=== PATIENT | male | born 1935 | race Caucasian/White ===

== ENCOUNTER 2017-04-14 05:41 | Inpatient (IN) | payer MEDICARE ==
--- OUTSIDE RECORDS SUMMARY | 2017-04-14 05:48 | XMS | Clinical Summary ---
:1935 Author Organization [facility] Address [address] [place] [address] Phone Care Team Providers Name Role Phone , Primary Care Provider Unavailable Allergies Not on File Current Medications Not on file Active Problems Not on file Social History Tobacco Use Types Packs/Day Years Used Date Never Assessed Sex Assigned at Date Recorded Not on file Last Filed Vital Signs Not on file Plan of Treatment Not on file Results Not on filefrom Last 3 Months
[2017-04-14] MEDS ORDERED: Fentanyl 100 MCG/2 ML VIAL ONE ×3 (06:46→14:31)
[2017-04-14] MEDS ORDERED: Midazolam HCl 2 mg/2 ml Vial ONE (06:46)
[2017-04-14 06:53] LABS: #Eosinphils 0.1 thou/uL (0.0-0.7); #Lymphocytes 1.6 thou/uL (1.20-3.40); #Neutrophils 6.2 thou/uL (1.40-6.50); %Basophils 0.4 % (0.0-1.0); %Eosinophils 1.5 % (0.0-10.0); %Lymphocytes 17.3 % (21.0-51.0); %Monocytes 11.2 % (0.0-10.0); Hematocrit 38.8 % (42.0-52.0); Mean Platelet Volume 6.7 fL (7.4-10.4); White Blood Cell (WBC) Count 8.9 thou/uL (4.8-10.8)
[2017-04-14 07:13] LABS: Anion Gap 13 mmol/L (10-20); BUN (Urea Nitrogen) 23 mg/dL (8.4-25.7); Calc. Creatinine Clearance 46 mL/min (70-130); Calcium 9.6 mg/dL (7.8-10.44); Carbon Dioxide 23 mmol/L (23-31); Chloride 105 mmol/L (98-107); Estimated GFR-MDRD 44
[2017-04-14] MEDS ORDERED: Iothalamate Meglumine 60% 50 ML VIAL FS ONE (07:17)
[2017-04-14] MEDS ORDERED: Bupivacaine HCl 0.5%/Epinephrine 1:200,000/PF 30 ml Vial ONE (07:17)
[2017-04-14] MEDS ORDERED: Propofol 200 MG/20 ML VIAL ONE (07:49)
[2017-04-14] MEDS ORDERED: Lidocaine 2% PF 10 ML AMP (For Epidural Use) ONE (07:49)
[2017-04-14] MEDS ORDERED: Glycopyrrolate 0.2 MG/ML 5 ML SYRINGE ONE (07:49)
[2017-04-14] MEDS ORDERED: ePHEDrine/0.9% NaCl/PF SYRINGE 50 mg/10 ml ONE (07:49)
[2017-04-14] MEDS ORDERED: Vecuronium 10 MG VIAL ONE (07:49)
[2017-04-14] MEDS ORDERED: Ropivacaine 0.2% HCl/PF 20 ML ONE (08:10)
[2017-04-14] MEDS ORDERED: SUGAMMADEX SODIUM 500 MG/5 ML VIAL ONE (13:19)
[2017-04-14] MEDS ORDERED: Promethazine HCl 25 MG/ML VIAL IM PRN ×2 (13:22→18:15)
[2017-04-14] MEDS ORDERED: Ondansetron HCl/PF 4 MG/2 ML Vial IVP PRN ×2 (13:22→18:15)
[2017-04-14] MEDS ORDERED: Promethazine HCl 25 MG/ML VIAL SLOW IVP PRN (13:22)
[2017-04-14] MEDS ORDERED: Fentanyl/Bupivacaine 250 ML EPIDURAL ONE (13:44)
[2017-04-14] MEDS ORDERED: Ondansetron HCl/PF 4 MG/2 ML Vial SLOW IVP PRN (14:03)
[2017-04-14] MEDS ORDERED: Acetaminophen 1,000 MG in Premix Bag 1 BAG IVPB SCH (15:00)
[2017-04-14] MEDS ORDERED: Eucerin (Mineral Oil/Petrolatum,White) 30 gm Jar TOP PRN (18:15)
[2017-04-14] MEDS ORDERED: Promethazine HCl 25 MG SUPP PR PRN (18:15)
[2017-04-14] MEDS ORDERED: Naloxone HCl 0.4 mg/ml Vial IV PRN (18:15)
[2017-04-14] MEDS ORDERED: diphenhydrAMINE HCl 25 MG CAP PO PRN (18:15)
[2017-04-14] MEDS ORDERED: traMADol HCl 50 MG TAB PO PRN ×2 (18:15)
[2017-04-14] MEDS ORDERED: Bupivacaine 0.25% 10 ML VIAL EPIDURAL PRN (18:15)
[2017-04-14] MEDS ORDERED: Fentanyl/Bupivacaine 250 ML in Premix Bag 1 BAG EPIDURAL SCH (18:15)
[2017-04-14] MEDS ORDERED: Naloxone HCl 0.4 mg/ml Vial IVP PRN (18:15)
[2017-04-14] MEDS ORDERED: diphenhydrAMINE HCl 50 MG/ML 1 ML VIAL IM PRN (18:15)
[2017-04-14] MEDS ORDERED: diphenhydrAMINE HCl 50 MG/ML 1 ML VIAL IVP PRN (18:15)
--- NOTE | 2017-04-14 18:49 | OP ---
PREOPERATIVE DIAGNOSIS: Request for bilateral ureteral stent placement for colovesical repair by Dr Lin Doshi. POSTOPERATIVE DIAGNOSIS: Request for bilateral ureteral stent placement for colovesical repair by Veronica Doshi. PROCEDURES PERFORMED: Cystoscopy, bilateral ureteral stent placement. INDICATION FOR PROCEDURE: This gentleman is 82 years old and undergoing a colovesical fistula repai r and Urology was requested for localizing stent placement. DESCRIPTION OF PROCEDURE: After signing informed consent, the patient was taken back to the procedu re room and underwent a general anesthetic, IV antibiotics, prepped and draped in the dorsal lithoto my position. After his catheter was removed, we entered his bladder with the rigid cystoscope. The surveillance cystoscopy did not see anything of concern. No fistula seen. The left ureteral orifi ce was intubated with a Glidewire and a 5-Kiswahili open-ended catheter was slid up into the kidney to 25 cm. This was repeated on the right side. The cystoscope was then removed leaving the stent in p lace. A 16 Kiswahili Thomson catheter was placed into the bladder, 10 mL placed in the balloon, stents w ere secured to the Thomson catheter, drainage packs were hooked up, the rest of the case was dictated by Dr. Doshi.
[2017-04-14] MEDS: Acetaminophen 1,000 MG in Premix Bag 1 BAG IVPB SCH (19:04)
[2017-04-14] MEDS: D5 1/2 NS w/20 mEq KCL 1,000 ML IV SCH (19:11)
[2017-04-14] MEDS: Brimonidine Tartrate 0.2% Ophth Soln 5 ml Bottle R EYE SCH (20:41)
[2017-04-14] MEDS: Timolol 0.5% Ophth Soln 5 ml Bottle R EYE SCH (20:42)
[2017-04-14] MEDS ORDERED: Sodium Chloride 0.9% 1,000 ML IV SCH ×2 (20:45→23:15)
[2017-04-14] MEDS ORDERED: Finasteride 5 MG TAB PO SCH (21:00)
[2017-04-14] MEDS ORDERED: Tamsulosin HCl 0.4 MG CAP PO SCH (21:00)
[2017-04-14 23:48] LABS: #Lymphocytes 1.1 thou/uL (1.20-3.40); #Monocytes 0.5 thou/uL (0.11-0.59); #Neutrophils 5.2 thou/uL (1.40-6.50); %Basophils 0.3 % (0.0-1.0); %Eosinophils 0.1 % (0.0-10.0); %Lymphocytes 16.4 % (21.0-51.0); %Monocytes 6.9 % (0.0-10.0); Hematocrit 34.6 % (42.0-52.0); Mean Platelet Volume 7.3 fL (7.4-10.4); Red Blood Cell (RBC) Count 3.81 mill/uL (4.70-6.10); White Blood Cell (WBC) Count 6.8 thou/uL (4.8-10.8)
[2017-04-14 23:49] LABS: Prothrombin Time 17.3 SEC (12.0-14.7)
[2017-04-14 23:50] LABS: PTT 37.1 SEC (22.9-36.1)
[2017-04-14 23:59] LABS: Anion Gap 14 mmol/L (10-20); BUN (Urea Nitrogen) 26 mg/dL (8.4-25.7); Calc. Creatinine Clearance 32 mL/min (70-130); Calcium 8.2 mg/dL (7.8-10.44); Carbon Dioxide 21 mmol/L (23-31); Chloride 107 mmol/L (98-107); Estimated GFR-MDRD 30
[2017-04-15 00:05] LABS: Troponin I 0.014 ng/mL (< 0.028)
--- NOTE | 2017-04-15 00:35 | PDOC.OP ---
Operative Note - Operative Note Operative Note: PROCEDURE: Laparoscopic hand-assisted left colectomy with repair of colovesical fistula DATE OF PROCEDURE: 04/14/2017 SURGEON: Rochelle Doshi M.D. ASST.: Gretchen CULVER PREOPERATIVE DIAGNOSES: Colovesical fistula POSTOPERATIVE DIAGNOSIS: Colovesical fistula HISTORY: Mr. 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 He has been treated with diversion and antibiotics and is here today for left colon resection and repair of colovesical fistula. PROCEDURE IN DETAIL: After informed consent was obtained and appropriate preoperative antibiotics administered the patient was taken to the operating room where he was placed in supine position and general endotracheal anesthesia was administered. Bilateral ureteral stents were placed by Dr. Toney of urology. The patient was then placed in lithotomy position and prepped and draped in the standard sterile fashion including a perineal prep. A sterile ileostomy appliance was placed over the ileostomy site. A 6 cm periumbilical incision was made and dissection carried down to the fascia which was incised in the midline. The peritoneum was entered and the incision extended along the length of the skin incision. No significant adhesions were encountered. A GelPort was placed in cardiac index a gas insufflated to an intra-abdominal pressure of 15 which the patient tolerated well. Dissecting trochars were placed in the upper midline and right and left lower quadrants under direct vision of the laparoscope and attention turned to the colovesical fistula. The colon was still very thickened and abnormal but a plane was able to be developed between the colon and the bladder. A fibrous connection between the 2 was encountered and divided using LigaSure. During this process the colon was entered but there was no visible defect in the bladder. The sigmoid colon was mobilized medially and the ureter with the stent present within it was clearly identified in the retroperitoneum distant from the colon. This was carefully avoided during the remainder of the case. The right ureter with stent was also clearly palpable but was distant from the area of dissection. Methylene blue saline was instilled into the bladder until it was well distended and no leak seen. A Lembert suture was placed at the site where the fibrous connection between the colon and bladder had been present as a precaution. The left colon was mobilized medially. The splenic flexure had previously been taken down. The middle colic was identified and preserved and the transverse colon appeared lax enough to reach down to the rectum. The normal rectum inferior to the inflamed thickened sigmoid colon was identified. The mesorectum was divided using LigaSure and an Endo CONNIE stapler placed across the upper rectum. The stapler was fired and the rectum divided. The mesocolon was then sequentially divided close to the wall of the colon using LigaSure, again verifying that the ureter was distant from the area of dissection. There was some bleeding from the mesial colon which was easily controlled with LigaSure. Dissection was carried up beyond the splenic flexure and the transverse colon brought down to the rectal stump and found to reach without tension. The GelPort was then removed leaving the wound protector in place and the colon was externalized and sterile drapes were placed circumferentially to prevent contamination. A colotomy was placed in the distal transverse colon and the transverse colon evaluated with sizers. This easily accepted up to a 31 mm sizer. Rectal sizers were then advanced to the end of the rectal pouch. This did require some dilation of the anus but the sizers passed to the end of the pouch without difficulty. The appropriate size EEA stapler was selected and the anvil placed through the antimesenteric edge of the transverse colon several centimeters proximal to the colotomy. A pursestring suture was placed around the stalk and the colon distal to the anvil was divided using another fire of the EEA stapler. The corners of the staple line were inverted with Lembert sutures. The EEA stapler was then advanced transanally to the end of the rectal pouch and the spike advanced through the rectal pouch and mated to the anvil of the transverse colon. The EEA stapler was closed taking care to maintain correct orientation of the colon. The stapler was then fired and removed and 2 complete full-thickness donuts were confirmed. The transverse colon was then clamped and saline instilled into the pelvis. The anastomosis was distended with gas and no bubbling was seen. The anastomosis was confirmed to be without tension, and a single reinforcing Lembert suture placed across the anastomosis to reinforce this. The mesocolon was then carefully examined and hemostasis verified. The abdomen was irrigated and irrigation fluid removed. Hemostasis was again verified. The 12 mm port site in the right lower quadrant was then removed and the fascia reapproximated with a 0 Vicryl suture on a GraNee needle with excellent technical result. The other dissecting trochars removed and hemostasis verified. The omentum was drawn down over the intestine and Seprafilm placed anterior to this. The fascia was closed under direct vision using a running 0 PDS suture with excellent technical result. All incisions were irrigated and the skin incisions were closed with 4-0 Monocryl subcuticular sutures. Dermabond dressings were placed and the patient was taken to the recovery room in good condition. Estimated blood loss was 100 mL's. There were no complications. Specimen is left colon.
[2017-04-15] MEDS: Sodium Chloride 0.9% 1,000 ML IV SCH ×5 (01:24→21:43)
[2017-04-15] MEDS: Acetaminophen 1,000 MG in Premix Bag 1 BAG IVPB SCH ×4 (01:25→17:33)
[2017-04-15] MEDS: Ketorolac Tromethamine 30 MG/ML VIAL IVP SCH ×2 (01:25→06:29)
[2017-04-15] MEDS ORDERED: Sodium Chloride 0.9% 1,000 ML IV SCH ×2 (01:45→11:45)
--- NOTE | 2017-04-15 01:48 | PDOC.EVN ---
Event Note - Event Note Event Note: Called around 8:30 for decreased blood pressure. The nurse states that his blood pressure had initially been in the 90s systolic had dropped into the 80s. His heart rate was also in the 80s and he was completely asymptomatic without lightheadedness shortness of breath or chest pain. He denied any pain in his abdomen and had not had any rectal bleeding since earlier down in the PACU. His urine output was marginal at 75 mL's over 2 hours site 8 him a fluid bolus of 1 L normal saline. The nurse called back about 2 hours later that his blood pressure had transiently come up with the fluids but was now back down, and his urine output was minimal. I asked her to give him another fluid bolus, get an EKG, send off labs and transfer him to the CCU for closer monitoring. In addition, he has fentanyl and local anesthetic running through his epidural and I asked her to call the pain management service to see about turning is down a bit. On reviewing his charts he does not have any documented low blood pressures in the CCU but his urine output was low. Direct to see him shortly after his arrival in the CCU. No acute changes on EKG and he was completely asymptomatic although his blood pressure remained 80 systolic. He was just beginning his second fluid bolus at that time and his abdomen was soft and nondistended and nontender. 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 His hematocrit is down a little from preop and his BUN and creatinine have gone up consistent with dehydration. Troponin is normal. He had only moderate bleeding during his operation and hemostasis was pristine at the end of the case, but postoperative bleeding is definitely a concern. He is receiving additional fluids and serial H&H and we will continue to monitor his vital signs and urine output closely.
[2017-04-15 02:22] LABS: Troponin I Less than 0.010 ng/mL (< 0.028)
[2017-04-15 05:10] LABS: Anion Gap 13 mmol/L (10-20); BUN (Urea Nitrogen) 27 mg/dL (8.4-25.7); Calc. Creatinine Clearance 36 mL/min (70-130); Calcium 7.7 mg/dL (7.8-10.44); Carbon Dioxide 20 mmol/L (23-31); Chloride 109 mmol/L (98-107); Estimated GFR-MDRD 35
[2017-04-15 05:47] LABS: Band 34 % (5-11); Hematocrit 33.2 % (42.0-52.0); Mean Platelet Volume 7.2 fL (7.4-10.4); Metamyelocyte 16 % (0-0); Neutrophil 31 % (42-75); Reactive Lymphocytes 1 % (0-10); Red Blood Cell (RBC) Count 3.62 mill/uL (4.70-6.10); White Blood Cell (WBC) Count 8.6 thou/uL (4.8-10.8)
--- NOTE | 2017-04-15 06:22 | EKG ---
Test Reason : PREOP Blood Pressure : / mmHG Vent. Rate : 060 BPM Atrial Rate : 060 BPM P-R Int : 148 ms QRS Dur : 112 ms QT Int : 428 ms P-R-T Axes : -04 -55 025 degrees QTc Int : 428 ms Normal sinus rhythm Left axis deviation Pulmonary disease pattern (persistent S waves V5 and V6. Abnormal ECG When compared with ECG of 05-JAN-2017 16:56, QT has shortened Confirmed by ELYSIA SALES ([id number]) on 04/15/2017 6:22:10 AM Referred By: TERESO Confirmed By:EYLSIA SALES
[2017-04-15 07:29] LABS: Hematocrit 34.2 % (42.0-52.0)
--- NOTE | 2017-04-15 07:39 | CT ---
PRELIMINARY REPORT/[facility]/EMERGENCY AFTER HOURS PROCEDURE: EXAM: CT Abdomen and Pelvis Without Intravenous Contrast CLINICAL HISTORY: 82 years old, male; abdominal pain: R/O bleed; Prior surgery; Post-operative (0-2 days); type: Ileos raimundo TECHNIQUE: Axial computed tomography images of the abdomen and pelvis without intravenous contrast. Coronal reformatted images were created and reviewed. COMPARISON: No relevant prior studies available. FINDINGS: Lower thorax: Minimal left pleural fluid. Areas of consolidation and/or atelectasis within each lowe r lobe. Coronary artery and aortic valve annulus calcification. ABDOMEN: Liver: Unremarkable. Gallbladder and bile ducts: Unremarkable. No calcified stones. No ductal dilation. Pancreas: Unremarkable. No ductal dilation. Spleen: Unremarkable. No splenomegaly. Adrenals: Unremarkable. No mass. Kidneys and ureters: Unremarkable. No obstructing stones. No hydronephrosis. Stomach and bowel: Scattered collections of postsurgical free air in this patient with recent ileost vaishnavi placement. Right lower quadrant ileostomy. Nondistended rectosigmoid colon - wall thickness celestina ot be accurately assessed in this area. No generalized ileus or obstruction. Appendix: Normal appendix. PELVIS: Bladder: Air within anterior portion of the bladder lumen following jamison catheterization. Bladder i nfection cannot be totally excluded. No stones. Reproductive: Enlarged prostate gland measuring 5 cm transversely. ABDOMEN and PELVIS: Intraperitoneal space: Small amount of free fluid in the abdomen pelvis. No evidence to suggest intr a-abdominal or pelvic hemorrhage. Bones/joints: Spinal degenerative changes. No acute fracture. No dislocation. Soft tissues: Unremarkable. Vasculature: Unremarkable. No abdominal aortic aneurysm. Lymph nodes: Unremarkable. No enlarged lymph nodes. IMPRESSION: 1. Scattered collections of postsurgical free air in this patient with recent ileostomy placement. 2. Small amount of free fluid in the abdomen pelvis. 3. No evidence to suggest intra-abdominal or pelvic hemorrhage. 4. Enlarged prostate gland measuring 5 cm transversely. 5. Air within anterior portion of the bladder lumen following jamison catheterization. Bladder infecti on cannot be totally excluded. 6. Minimal left pleural fluid. Areas of consolidation and/or atelectasis within each lower lobe. Thank you for allowing us to participate in the care of your patient. Dictated and Authenticated by: Nghia Clayton MD 04/15/2017 3:22 AM Central Time ([place] \T\ [place]) FINAL REPORT CT ABDOMEN AND PELVIS WITHOUT CONTRAST: I agree with the preliminary report by Dr. Nghia Clayton of [facility]. POS: NATE
[2017-04-15] MEDS ORDERED: Hydrochlorothiazide 25 MG TAB PO SCH (09:00)
[2017-04-15] MEDS ORDERED: Metoprolol Tartrate 25 MG TAB PO SCH (09:00)
[2017-04-15] MEDS ORDERED: Latanoprost 0.005% Ophth Soln 2.5 ml Bottle EA EYE SCH (09:00)
[2017-04-15] MEDS: Timolol 0.5% Ophth Soln 5 ml Bottle R EYE SCH ×2 (09:13→21:40)
--- NOTE | 2017-04-15 09:20 | CON ---
DATE OF CONSULTATION: 04/15/2017 CONSULTING PHYSICIAN: Dr. Doshi REASON FOR CONSULTATION: ICU protocol. HISTORY OF PRESENT ILLNESS: The patient is an 82-year-old male, who was hospitalized yesterday for evaluation and treatment of a colonic vesicular fistula. He underwent laparotomy with a diverting i leostomy. Last night, he was transferred to the ICU, because of hypotension. He has responded some what to fluids and has not required initiation of vasopressor therapy. At the current time, he is c omfortable and has no complaints. PAST MEDICAL HISTORY: 1. Hyperlipidemia. 2. Prostate cancer. 3. Herpes zoster. 4. Skin cancer. PAST SURGICAL HISTORY: Diverting ileostomy; shoulder and foot surgery and back surgery. SOCIAL HISTORY: Nonsmoker, does not consume alcohol, does not use illicit drugs. MEDICATIONS PRIOR TO ADMISSION: Simvastatin, metoprolol, finasteride, amlodipine, aspirin, vitamin C, glucosamine, Centrum, amiloride/hydrochlorothiazide, meloxicam. FAMILY MEDICAL HISTORY: Remarkable for congestive heart failure and stroke. ALLERGIES: CEPHALOSPORINS. REVIEW OF SYSTEMS: Twelve-point review of systems is otherwise negative. PHYSICAL EXAMINATION: VITAL SIGNS: Temperature 98.1, pulse 85, blood pressure 89/47, O2 sat 91%-94%. Total intake since ICU admission 5236 mL and output 229, weight 180 pounds. GENERAL: He is awake and alert. He is in no acute distress. HEENT EXAM: Pupils react. Sclerae are anicteric. Oropharynx clear. NECK: Without adenopathy or JVD. LUNGS: Clear without wheezing or rhonchi. CARDIOVASCULAR: S1, S2 regular, without murmur, rub, or gallop. ABDOMEN: He has a right-sided ileostomy. He has several small surgical wounds, which are healing w ell. EXTREMITIES: Without clubbing, cyanosis, or edema. LABORATORY DATA: Sodium 138, potassium 4.2, chloride 109, CO2 of 20, BUN 27, creatinine 1.8, glucos e 89. Troponin less than 0.01, calcium 7.7. White blood cell count 8.6, hemoglobin 11.4, hematocri t 34.2, platelet count 120. Cortisol level is pending. CT of the abdomen had no significant findin gs. ASSESSMENT: Postoperative hypotension -- seems to be somewhat mediated by volume status. Need to r ule out adrenal insufficiency. Need to rule out the effect of the epidural on his blood pressure. RECOMMENDATIONS: 1. Check cortisol level. 2. Hold antihypertensives for the current time. 3. Hold amiloride and hydrochlorothiazide. 4. Continue volume resuscitation. 5. Consider stopping the epidural.
[2017-04-15] MEDS: Brimonidine Tartrate 0.2% Ophth Soln 5 ml Bottle R EYE SCH ×2 (09:30→21:38)
[2017-04-15] MEDS: Hydrocortisone Sod Succ/PF 100 mg/2 ml Vial IVP SCH ×3 (11:55→23:43)
[2017-04-15 12:04] LABS: Hematocrit 34.6 % (42.0-52.0); Mean Platelet Volume 7.3 fL (7.4-10.4); White Blood Cell (WBC) Count 7.7 thou/uL (4.8-10.8)
[2017-04-15] MEDS ORDERED: DOPamine 400 MG/D5W 250 ML 250 ML ONE (12:08)
[2017-04-15 12:27] LABS: Anion Gap 11 mmol/L (10-20); BUN (Urea Nitrogen) 29 mg/dL (8.4-25.7); Calc. Creatinine Clearance 37 mL/min (70-130); Calcium 7.9 mg/dL (7.8-10.44); Carbon Dioxide 20 mmol/L (23-31); Chloride 111 mmol/L (98-107); Estimated GFR-MDRD 35
[2017-04-15 12:32] LABS: Troponin I Less than 0.010 ng/mL (< 0.028)
[2017-04-15 12:46] LABS: Band 35 % (5-11); Metamyelocyte 1 % (0-0); Neutrophil 49 % (42-75); Reactive Lymphocytes 1 % (0-10); Vacuoles SLIGHT
[2017-04-15] MEDS ORDERED: DOPamine 400 MG/D5W 250 ML 250 ML IVPB SCH (15:15)
[2017-04-15 18:12] LABS: Hematocrit 39.6 % (42.0-52.0)
--- NOTE | 2017-04-15 21:16 | CON ---
DATE OF CONSULTATION: 04/15/2017 REASON FOR CONSULTATION: Hypotension. HISTORY OF PRESENT ILLNESS: Mr. Butt is a pleasant 82-year-old gentleman, a patient of Dr. Kinsey. The patient underwent colon surgery yesterday, did well, no problems, but was hypotensi ve today, received boluses of intravenous fluid. There was transient increased blood pressure, but the blood pressure would then come down again. Ultimately, he had to be brought here to the emergen cy room. He has been started on dopamine and the blood pressures improved. At one point the blood pressure was even in the 60s systolic. The patient is resting comfortably now. PAST MEDICAL HISTORY: 1. History of spinal stenosis surgery. 2. Colon surgery as outlined above. 3. Hypertension. MEDICATIONS PRIOR TO ADMISSION: 1. Amlodipine 5 mg a day which he did take yesterday morning. 2. Metoprolol long-acting 25 mg which he did take yesterday morning. 3. Flomax (tamsulosin) in the evening, which he did receive yesterday at 08:39 p.m. REVIEW OF SYSTEMS: Constitutional: No significant weight gain or loss. Vision: No changes. Hear ing: No changes. Pulmonary: No cough or wheezing. Gastrointestinal: No nausea, vomiting, diarrh ea. Skin: No rashes. Neurologic: No unilateral weakness or numbness. Psychiatric: No unusual depression or anxiety. Hematologic: No unusual bruising. Genitourinary: No burning with urination. ALLERGIES: To CEFEPIME and CEPHALOSPORINS. PHYSICAL EXAMINATION: GENERAL: This is a pleasant elderly gentleman in no distress. VITAL SIGNS: Blood pressure is 110/60, pulse 90. HEENT: Eyes, sclerae nonicteric. Mouth, mucous membranes moist. NECK: Supple, no lymphadenopathy. LUNGS: Clear, no wheezing, rales or rhonchi. CARDIAC: Normal S1, normal S2. There is no murmur, rub or gallop. ABDOMEN: Soft, nontender, no hepatosplenomegaly. EXTREMITIES: Warm, dry, no clubbing or cyanosis. There is no edema. Peripheral pulses are intact in the feet. LABORATORY AND X-RAY FINDINGS: EKG, normal EKG. Echocardiogram showed normal left ventricular func tion with mild right ventricular dilatation, mildly elevated pulmonary artery pressures, creatinine is 1.85, BNP 519, troponin was negative. ASSESSMENT: 1. Postoperative hypotension, does not appear that he is having any bleeding as outlined by Dr. Andi goldstein's notes, may be multifactorial including medications, could still be somewhat volume depleted. The left ventricular function appears normal. Plan is to continue with intravenous fluid. 2. Increased BNP does indicate some element of diastolic dysfunction. We will need to be judicious about the fluids, but for now we will continue 200 mL an hour. 3. Stop Flomax. 4. Stop amlodipine. 5. Stop metoprolol. Dr. Kinsey will resume the patient's care tomorrow.
[2017-04-15] MEDS: D5 1/2 NS w/20 mEq KCL 1,000 ML IV SCH (21:35)
[2017-04-15] MEDS: Latanoprost 0.005% Ophth Soln 2.5 ml Bottle EA EYE SCH (21:42)
[2017-04-15] MEDS: HYDROcodone/Acetaminophen 5/325 mg Tablet PO PRN (22:30)
[2017-04-16 00:02] LABS: Hematocrit 38.7 % (42.0-52.0)
[2017-04-16 05:19] LABS: Band 35 % (5-11); Mean Platelet Volume 7.3 fL (7.4-10.4); Neutrophil 60 % (42-75); Red Blood Cell (RBC) Count 4.19 mill/uL (4.70-6.10); White Blood Cell (WBC) Count 11.3 thou/uL (4.8-10.8)
[2017-04-16] MEDS: Hydrocortisone Sod Succ/PF 100 mg/2 ml Vial IVP SCH ×3 (05:30→17:34)
[2017-04-16] MEDS: Sodium Chloride 0.9% 1,000 ML IV SCH ×3 (05:44→18:15)
--- NOTE | 2017-04-16 06:27 | EKG ---
Test Reason : STAT Blood Pressure : / mmHG Vent. Rate : 082 BPM Atrial Rate : 082 BPM P-R Int : 154 ms QRS Dur : 104 ms QT Int : 358 ms P-R-T Axes : 007 -61 028 degrees QTc Int : 418 ms Normal sinus rhythm Left axis deviation Pulmonary disease pattern Inferior infarct , age undetermined Abnormal ECG When compared with ECG of 14-APR-2017 06:54, Nonspecific T wave abnormality now evident in Anterolateral leads Confirmed by ELYSIA SALES ([id number]) on 04/16/2017 6:27:11 AM Referred By: TERESO Confirmed By:ELYSIA SALES
--- NOTE | 2017-04-16 08:13 | PRG ---
DATE OF SERVICE: 04/16/2017 Mr. Butt is doing much better today. He feels fine. He is not nauseated. He is a little hungry and would like something more than clear liquids. He has a little bit of pain at his incisio n when he tries to sit up, but is comfortable at rest. He has not been out of bed yet due to his bl ood pressure issues. His blood pressure has been much better. The nurse turned down the dopamine s everal hours ago and he is still maintaining in the 120s systolic. His urine output has also been g ood and has increased from about 30 mL an hour to 80 mL and hour. Labs are stable, his H\T\H has ac tually gone up a little bit from 11 and 35 yesterday morning to 12 and 38 today, has overall been st able. He does have a slight elevation in his white count and a bandemia, but has not been febrile a nd this may be a result of Solu-Cortef he has received. His abdomen is soft and nontender except ju st around the incisions as anticipated. Bowel sounds are still slightly diminished, but he had 200 in ileostomy output yesterday. Incisions are clean, dry, and intact. Thomson catheter is in place an d urine is much clearer in color. He was seen yesterday by Dr. Esquivel and by Dr. Walls. Dr. Servin cer start him on some Solu-Cortef since his cortisol level was less than 20 inappropriately in the s etting of postoperative stress and hypotension. Dr. Walls started him on some low dose dopamine af ter fluid resuscitation. We are currently in the process of weaning that down. ASSESSMENT: Doing much better. Hypertension, resolving, although etiology is unclear, possibly an element of adrenal insufficiency, possibly related to preoperative chronic home medications and volu me depletion following this surgery. We have come down on both his fluids and his dopamine and hope to get the dopamine off today. Once that is accomplished, we can increase his activities and get h im up and moving. Since his H\T\H have been entirely stable and his CT was negative for bleeding, I have started Lovenox at prophylactic dosing appropriate for postoperative management. Once he is t olerating his diet with normal ileostomy function and medically stable he should be able to be disch arged. I will see him back in my clinic in a few weeks and schedule imaging of the colonic anastomo sis for planned ileostomy takedown, although of course he will require cardiology clearance before w gautam proceed with that. At this point he does not appear to have had an acute cardiac event. His trop onins have all been negative and his echocardiogram showed a normal ejection fraction with just some diastolic dysfunction.
--- NOTE | 2017-04-16 08:15 | PRG ---
DATE OF SERVICE: 04/16/2017 He is feeling better this morning. He had no acute complaints except for soreness near surgical sit e. PHYSICAL EXAMINATION: VITAL SIGNS: Temperature is 98.0, pulse 83, blood pressure 130/68. He is currently on a dopamine d rip at 3 mcg per minute. HEENT: Unremarkable. NECK: Without adenopathy or JVD. CHEST: Clear to auscultation without wheezing. CARDIAC: S1 and S2 regular. ABDOMEN: The abdomen is slightly tender around the surgical site, but overall looks good. EXTREMITIES: No clubbing, cyanosis, or edema. LABORATORY DATA: White blood cell count 11.3, hematocrit 38, platelet count 126. Sodium 138, potas sium 4.2, chloride 111, CO2 20, BUN 29, creatinine 1.8, glucose 79. BNP 519. Echo showed some comp onent of diastolic dysfunction. Cortisol level was inappropriately low at 12. ASSESSMENT: 1. Relative adrenal insufficiency. 2. Postoperative hypotension, perhaps secondary to adrenal insufficiency versus volume depletion. 3. History of hypertension. 4. History of hyperlipidemia. PLAN: 1. Continue to hold antihypertensives. 2. Wean off dopamine as tolerated. 3. Continue hydrocortisone for at least the next 3 days. 4. Increase activity as tolerated.
[2017-04-16] MEDS: Enoxaparin Sodium 40 MG/0.4 ML SYRINGE SC SCH (08:35)
[2017-04-16] MEDS: Sulfameth/Trimethoprim DS 800-160mg TAB PO SCH (08:36)
[2017-04-16] MEDS: Timolol 0.5% Ophth Soln 5 ml Bottle R EYE SCH ×2 (08:38→20:41)
[2017-04-16] MEDS: Brimonidine Tartrate 0.2% Ophth Soln 5 ml Bottle R EYE SCH ×2 (08:41→20:42)
--- NOTE | 2017-04-16 09:10 | PRG ---
DATE OF SERVICE: 04/16/2017 Mr. Butt appears to be resting comfortably. He continues to complain of mild abdominal dis comfort. He recently underwent surgery. His blood pressure appears stable on low dose dopamine. PHYSICAL EXAMINATION: VITAL SIGNS: Blood pressure 124/68, pulse 81, temperature 98. LUNGS: Clear to auscultation. CARDIAC: Regular rate and rhythm. ABDOMEN: Soft, nontender, nondistended. EXTREMITIES: No significant edema. Recent echo LVEF 55-60% with mild right ventricular enlargement. IMPRESSION: Hypotension. RECOMMENDATIONS: Likely due to volume contraction. He appears to be improving. No chest pain or p ressure or shortness of breath noted. Continue to titrate down dobutamine. Continue IV fluids.
[2017-04-16] MEDS: HYDROcodone/Acetaminophen 5/325 mg Tablet PO PRN (12:50)
[2017-04-16] MEDS: Latanoprost 0.005% Ophth Soln 2.5 ml Bottle EA EYE SCH (20:41)
[2017-04-17] MEDS: Hydrocortisone Sod Succ/PF 100 mg/2 ml Vial IVP SCH ×4 (00:07→17:28)
[2017-04-17] MEDS: Sodium Chloride 0.9% 1,000 ML IV SCH ×4 (00:17→22:29)
[2017-04-17 04:55] LABS: #Lymphocytes 0.6 thou/uL (1.20-3.40); #Monocytes 0.2 thou/uL (0.11-0.59); #Neutrophils 8.3 thou/uL (1.40-6.50); %Eosinophils 0.1 % (0.0-10.0); %Lymphocytes 6.8 % (21.0-51.0); %Monocytes 2.4 % (0.0-10.0); Hematocrit 33.2 % (42.0-52.0); Mean Platelet Volume 7.2 fL (7.4-10.4); Red Blood Cell (RBC) Count 3.63 mill/uL (4.70-6.10); White Blood Cell (WBC) Count 9.1 thou/uL (4.8-10.8)
[2017-04-17 04:57] LABS: Anion Gap 7 mmol/L (10-20); BUN (Urea Nitrogen) 30 mg/dL (8.4-25.7); Calc. Creatinine Clearance 64 mL/min (70-130); Calcium 8.6 mg/dL (7.8-10.44); Carbon Dioxide 21 mmol/L (23-31); Chloride 112 mmol/L (98-107); Estimated GFR-MDRD 62
[2017-04-17] MEDS: Enoxaparin Sodium 40 MG/0.4 ML SYRINGE SC SCH (09:13)
[2017-04-17] MEDS: Sulfameth/Trimethoprim DS 800-160mg TAB PO SCH (09:13)
[2017-04-17] MEDS: Brimonidine Tartrate 0.2% Ophth Soln 5 ml Bottle R EYE SCH ×2 (09:28→20:49)
[2017-04-17] MEDS: Timolol 0.5% Ophth Soln 5 ml Bottle R EYE SCH ×2 (09:29→20:46)
--- NOTE | 2017-04-17 16:04 | PRG ---
DATE OF SERVICE: 04/17/2017 SUBJECTIVE: Filomena has done well overnight. He is sitting at the bedside, in no distress. Family is in the room. OBJECTIVE: VITAL SIGNS: He is afebrile, heart rate 80, respiratory rate 23, oximetry is 98 on room air. LUNGS : Clear. HEART: Regular rhythm. ABDOMEN: Soft. Ejection fraction was normal. White count is 9.1, hemoglobin 11.0, platelets 115. Sodium 136, pota ssium 4, chloride 112, bicarbonate 21, BUN 30, creatinine 1.1. IMPRESSION: 1. 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 He looks great at this point. His family is very pleased with his appearance. My opinion is, he is stable to move out of the Critical Care Unit.
[2017-04-17] MEDS: Latanoprost 0.005% Ophth Soln 2.5 ml Bottle EA EYE SCH (20:44)
[2017-04-18] MEDS: Zolpidem Tartrate 5 MG TAB PO PRN ×2 (00:11→20:52)
[2017-04-18] MEDS: Sodium Chloride 0.9% 1,000 ML IV SCH ×4 (03:21→23:49)
[2017-04-18] MEDS: Hydrocortisone Sod Succ/PF 100 mg/2 ml Vial IVP SCH ×5 (05:05→23:51)
[2017-04-18 06:08] LABS: #Basophils 0.1 thou/uL (0.0-0.2); #Lymphocytes 0.6 thou/uL (1.20-3.40); #Monocytes 0.3 thou/uL (0.11-0.59); #Neutrophils 7.5 thou/uL (1.40-6.50); %Basophils 0.6 % (0.0-1.0); %Eosinophils 0.1 % (0.0-10.0); %Monocytes 3.4 % (0.0-10.0); Hematocrit 35.3 % (42.0-52.0); Mean Platelet Volume 6.8 fL (7.4-10.4); White Blood Cell (WBC) Count 8.4 thou/uL (4.8-10.8)
[2017-04-18 06:49] LABS: Anion Gap 9 mmol/L (10-20); BUN (Urea Nitrogen) 30 mg/dL (8.4-25.7); Calc. Creatinine Clearance 73 mL/min (70-130); Calcium 8.8 mg/dL (7.8-10.44); Carbon Dioxide 22 mmol/L (23-31); Chloride 112 mmol/L (98-107); Estimated GFR-MDRD 71
[2017-04-18] MEDS: Sulfameth/Trimethoprim DS 800-160mg TAB PO SCH (09:08)
[2017-04-18] MEDS: Enoxaparin Sodium 40 MG/0.4 ML SYRINGE SC SCH (09:08)
[2017-04-18] MEDS: Brimonidine Tartrate 0.2% Ophth Soln 5 ml Bottle R EYE SCH ×2 (09:12→20:47)
[2017-04-18] MEDS: Timolol 0.5% Ophth Soln 5 ml Bottle R EYE SCH ×2 (09:14→20:48)
[2017-04-18] MEDS: HYDROcodone/Acetaminophen 5/325 mg Tablet PO PRN (10:30)
[2017-04-18] MEDS ORDERED: Clopidogrel Bisulfate 75 MG TAB ONE (14:42)
--- NOTE | 2017-04-18 15:24 | PRG ---
DATE OF SERVICE: 04/18/2017 SUBJECTIVE: Mr. Butt complaining of shoulder pain. He said he had this pain when he woke up yesterday as well he has had a rotator cuff repair on the left. He said he received pain medicin e yesterday and his pain went away. He denies having any chest pain, denies abdominal pain. OBJECTIVE: VITAL SIGNS: Blood pressure 168/87, heart rate 76, respiratory rate 14. He is afebrile. LUNGS: Remarkable for very fine crackles at the very bottom of his lungs. HEART: Regular rhythm. ABDOMEN: Soft. LABORATORY DATA: White count 8.4, hemoglobin 11.6, and platelets 131. Sodium 139, potassium 3.9, c hloride 112, bicarbonate 22, BUN 30, and creatinine 1. IMPRESSION: 1. 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 I doubt this is a cardiac presentation for ischemia. 2. 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 3. Postoperative hypotension, resolved. 4. Relative adrenal insufficiency. PLAN: Continue to increase his activity with physical therapy, pain control.
--- NOTE | 2017-04-18 19:44 | PDOC.CTH ---
<Wendy Avila - Last Filed: 04/18/17 19:45> Cardiology Progress Note - Subjective The pt was seen and examined. No cardiac complaints. No overnight events. Complains of edemas in his bilat. forearms. He walked with PT today without any cardiac complaints, but very weak - Objective Vital Signs Temp Pulse Resp BP BP Pulse Ox 04/18/17 16:40 97.9 F 90 12 167/93 H 94 L 04/18/17 09:14 76 168/87 H 04/18/17 09:00 97.8 F 83 14 180/108 H 95 04/18/17 08:00 97.6 F 76 16 95 Weight 203 lb 4.259 oz 04/17/17 04/18/17 04/19/17 06:59 06:59 06:59 Intake Total 4407 1774 1770 Output Total 1979 2019 2500 Balance 7088 -472 -839 - Physical Examination General/Neuro: alert & oriented x3 Neck: no JVD present Lungs: CTA Heart: RRR Extremities: other: (no edemas) - Labs Result Diagrams: 04/18/17 05:47 04/18/17 05:47 Troponin/CKMB CK-MB (CK-2) 1.1 ng/mL (0-6.6) 04/15/17 11:47 Troponin I Less than 0.010 ng/mL (< 0.028) 04/15/17 11:47 - Assessment/Plan 1. S/P Lt colon resection and repair of colovesical fistula - stable 2. HTN - Start Norvasc 5mg daily; cont. monitor VS 3. Relative Adrenal Insufficiency 4. Shoulder discomfort MAR reviewed Review of Systems - Review of Systems Constitutional: reports: no symptoms reported EENTM: reports: no symptoms reported Respiratory: reports: no symptoms reported Cardiac (ROS): reports: no symptoms reported ABD/GI: reports: no symptoms reported : reports: no symptoms reported Musculoskeletal: reports: see HPI <Andrei Kohler - Last Filed: 04/18/17 22:16> Cardiology Progress Note - Objective Vital Signs Temp Pulse Resp BP BP Pulse Ox 04/18/17 20:48 72 163/82 H 04/18/17 20:00 97.9 F 72 18 163/82 H 94 L 04/18/17 16:40 97.9 F 90 12 167/93 H 94 L Weight 203 lb 4.259 oz 04/17/17 04/18/17 04/19/17 06:59 06:59 06:59 Intake Total 4406 177 1770 Output Total 1979 2019 2499 Balance 0945 -290 -730 - Labs Result Diagrams: 04/18/17 05:47 04/18/17 05:47 Troponin/CKMB CK-MB (CK-2) 1.1 ng/mL (0-6.6) 04/15/17 11:47 Troponin I Less than 0.010 ng/mL (< 0.028) 04/15/17 11:47 - Assessment/Plan Pt. seen and eval. by me. I agree with the A/P by the RESOURCE CONSERVATIONIST.
[2017-04-18] MEDS: Latanoprost 0.005% Ophth Soln 2.5 ml Bottle EA EYE SCH (20:47)
[2017-04-19] MEDS: Hydrocortisone Sod Succ/PF 100 mg/2 ml Vial IVP SCH (05:17)
[2017-04-19 06:01] LABS: Anion Gap 10 mmol/L (10-20); BUN (Urea Nitrogen) 29 mg/dL (8.4-25.7); Calc. Creatinine Clearance 74 mL/min (70-130); Calcium 8.6 mg/dL (7.8-10.44); Carbon Dioxide 24 mmol/L (23-31); Chloride 111 mmol/L (98-107); Estimated GFR-MDRD 73
[2017-04-19 06:19] LABS: Band 3 % (5-11); Hematocrit 35.2 % (42.0-52.0); Mean Platelet Volume 6.8 fL (7.4-10.4); Neutrophil 77 % (42-75); Reactive Lymphocytes 1 % (0-10); Red Blood Cell (RBC) Count 3.92 mill/uL (4.70-6.10)
[2017-04-19] MEDS: Sodium Chloride 0.9% 1,000 ML IV SCH ×2 (06:35→13:21)
[2017-04-19] MEDS ORDERED: predniSONE 5 MG TAB PO SCH (08:45)
--- NOTE | 2017-04-19 08:52 | PRG ---
DATE OF SERVICE: 04/19/2017 SUBJECTIVE: The patient is doing better. He had no acute complaints today. PHYSICAL EXAMINATION: VITAL SIGNS: Temperature is 97.8, pulse 60, respirations 18, O2 sat 94% on 2 liters, and blood pres sure 171/84. HEENT: Unremarkable. NECK: No JVD. CHEST: Clear to auscultation without wheezing. CARDIAC: S1, S2 regular. ABDOMEN: Soft. EXTREMITIES: No edema. LABORATORY DATA: White blood cell count 7, hematocrit 35.2, and platelet count 131. Sodium 142, po tassium 3.4, chloride 111, CO2 24, BUN 29, creatinine 0.9, glucose 110. ASSESSMENT: 1. Postoperative hypotension, likely secondary to relative adrenal insufficiency. 2. Status post laparotomy. 3. History of hypertension. PLAN: The patient's blood pressure has improved to the point to where his antihypertensives have be en partially restarted. I will go ahead and begin weaning her steroids with the goal of discontinui ng prednisone 3 days from now. He should be able to go home at anytime from my standpoint.
[2017-04-19] MEDS: Enoxaparin Sodium 40 MG/0.4 ML SYRINGE SC SCH (09:53)
[2017-04-19] MEDS: Sulfameth/Trimethoprim DS 800-160mg TAB PO SCH (09:53)
[2017-04-19] MEDS: Timolol 0.5% Ophth Soln 5 ml Bottle R EYE SCH ×2 (14:17→21:58)
[2017-04-19] MEDS: Brimonidine Tartrate 0.2% Ophth Soln 5 ml Bottle R EYE SCH ×2 (14:17→21:58)
--- NOTE | 2017-04-19 14:28 | PDOC.CTH ---
<Wendy Avila - Last Filed: 04/19/17 14:26> Cardiology Progress Note - Subjective The pt was seen and examined. No overnight events. No cardiac complaints. His HR was up to 130s this AM. 12 lead ECG showed Afib with RVR, HR 110s. He denied palpitation, dizziness, or other cardiac complaints, except fatigue. The pt's is in the room. The questions/concerns were answered. - Objective Vital Signs Temp Pulse Resp BP Pulse Ox 04/19/17 11:32 97.4 F L 130 H 17 151/94 H 96 04/19/17 08:00 97.4 F L 130 H 17 04/19/17 07:30 97.8 F 68 18 171/84 H 94 L 04/19/17 04:00 98 F 65 18 167/81 H 93 L Weight 203 lb 4.259 oz 04/18/17 04/19/17 04/20/17 06:59 06:59 06:59 Intake Total 1773 2069 Output Total 2019 4000 Balance -246 -1930 - Physical Examination General/Neuro: alert & oriented x3 Neck: no JVD present Lungs: CTA Heart: other: (Irregular) Abdomen: soft Extremities: other: (No edema) Other PE findings: colostomy @ Rt ABD - Telemetry Telemetry Rhythm: 12 lead ECG showed Afib - Labs Result Diagrams: 04/19/17 05:29 04/19/17 05:29 Troponin/CKMB CK-MB (CK-2) 1.1 ng/mL (0-6.6) 04/15/17 11:47 Troponin I Less than 0.010 ng/mL (< 0.028) 04/15/17 11:47 - Assessment/Plan 1. Now Onset of Afib with RVR - 12-lead ECG showed Afib with HR 110s at this time; asymptomatic 2. S/P Lt colon resection and repair of colovesical fistula - stable 3. HTN - cont. monitor VS 4. Relative Adrenal Insufficiency 5. Shoulder discomfort MAR reviewed *Tx to cont. montior on Tele and will adjust medication for Afib <Andrei Kohler - Last Filed: 04/19/17 16:22> Cardiology Progress Note - Objective Vital Signs Temp Pulse Resp BP Pulse Ox 04/19/17 15:20 97.5 F L 125 H 20 168/84 H 95 10/09/17 11:32 97.4 F L 130 H 17 151/94 H 96 04/19/17 08:00 97.4 F L 130 H 17 04/19/17 07:30 97.8 F 68 18 171/84 H 94 L Weight 204 lb 1.6 oz 04/18/17 04/19/17 04/20/17 06:59 06:59 06:59 Intake Total 1773 2069 Output Total 2019 3999 Balance -246 -1930 - Labs Result Diagrams: 04/19/17 05:29 04/19/17 05:29 Troponin/CKMB CK-MB (CK-2) 1.1 ng/mL (0-6.6) 04/15/17 11:47 Troponin I Less than 0.010 ng/mL (< 0.028) 04/15/17 11:47 - Assessment/Plan Pt. seen and eval. after transfer to [facility] due to Afib with RVR. This occurred somtime within the last 24hrs. He was unaware that he had an irregular or rapid HR. Start dilt. IV. I agree with the A/P by the TECHNICAL APPLICATIONS SCIENTIST.
[2017-04-19] MEDS: Latanoprost 0.005% Ophth Soln 2.5 ml Bottle EA EYE SCH (21:58)
[2017-04-19] MEDS: Zolpidem Tartrate 5 MG TAB PO PRN (22:11)
[2017-04-20] MEDS: HYDROcodone/Acetaminophen 5/325 mg Tablet PO PRN (00:01)
[2017-04-20 06:12] LABS: Band 1 % (5-11); Hematocrit 38.1 % (42.0-52.0); Mean Platelet Volume 7.1 fL (7.4-10.4); Neutrophil 77 % (42-75); Red Blood Cell (RBC) Count 4.25 mill/uL (4.70-6.10)
[2017-04-20 06:20] LABS: Anion Gap 9 mmol/L (10-20); BUN (Urea Nitrogen) 25 mg/dL (8.4-25.7); Calc. Creatinine Clearance 79 mL/min (70-130); Calcium 8.4 mg/dL (7.8-10.44); Carbon Dioxide 28 mmol/L (23-31); Chloride 108 mmol/L (98-107); Estimated GFR-MDRD 78
--- NOTE | 2017-04-20 07:58 | PRG ---
DATE OF SERVICE: 04/20/2017 The patient had to be transferred down to telemetry yesterday because of development of atrial fibri llation. Unfortunately, this morning he remained in atrial fibrillation. He is on a Cardizem drip at 5 mg an hour. He said he does not feel well, but he cannot pinpoint exactly what is wrong. PHYSICAL EXAMINATION: VITAL SIGNS: Temperature is 98.5, pulse 89, blood pressure 136/75, O2 sats 94% on 2 liters. HEENT: Unremarkable. NECK: No JVD. CARDIAC: S1, S2 irregularly irregular. LUNGS: Clear. ABDOMEN: Soft. EXTREMITIES: No edema. LABORATORY DATA: White blood cell count 9, hematocrit 38.1, platelet count 146. Sodium 142, potass ium 2.8, chloride 108, CO2 28, BUN 25, creatinine 0.9, glucose 84. ASSESSMENT: 1. Atrial fibrillation with rapid ventricular response. 2. Status post laparotomy. 3. Renal insufficiency. 4. Hypokalemia. PLAN: 1. Replace his potassium. 2. Continue low dose prednisone 3. Atrial fibrillation management per Cardiology.
[2017-04-20 08:27] VITALS: BMI 30.9
[2017-04-20] MEDS ORDERED: Potassium Chloride 40 MEQ in Sodium Chloride 0.9% 500 ML IVPB SCH (09:00)
[2017-04-20] MEDS: Potassium Chloride 20 MEQ TAB PO SCH ×2 (09:29→21:43)
[2017-04-20] MEDS: predniSONE 5 MG TAB PO SCH (09:29)
[2017-04-20] MEDS: Enoxaparin Sodium 40 MG/0.4 ML SYRINGE SC SCH (09:30)
[2017-04-20] MEDS: Brimonidine Tartrate 0.2% Ophth Soln 5 ml Bottle R EYE SCH ×2 (09:32→21:46)
[2017-04-20] MEDS: Sulfameth/Trimethoprim DS 800-160mg TAB PO SCH (09:32)
[2017-04-20] MEDS: Timolol 0.5% Ophth Soln 5 ml Bottle R EYE SCH ×2 (09:33→21:49)
--- NOTE | 2017-04-20 16:34 | PRG ---
DATE OF SERVICE: 04/20/2017 SUBJECTIVE: Mr. Butt is postoperative day #6, following a sigmoid colectomy for colovesica l fistula. He appeared to be ready for discharge yesterday, but developed atrial fibrillation with rapid ventricular response. He was seen by Cardiology and transferred to the telemetry floor. He h as no complaints at this time. He was started on a Cardizem drip. He was in atrial fibrillation ap parently until recently and has converted and he appears to currently have a heart rate of 70 in nor mal sinus rhythm. He has no complaints. He tells me he has minimal pain and is tolerating his diet without nausea or vomiting. His ostomy is functioning well. He denies any significant discomfort. His primary compl aint is that he does not have much energy. OBJECTIVE: VITAL SIGNS: He is afebrile. Vital signs within normal limits. ABDOMEN: Soft, nontender and nondistended with incisions nicely healed. ASSESSMENT AND PLAN: The patient who is doing well following laparoscopic colon resection for a col ovesical fistula. He is familiar with taking care of his ost[facility] as [facility] He will continue with a regular diet. He may be discharged home whenever cleared by Card iology. Patient tells me that Dr. Kinsey tentatively plans to discharge him home tomorrow.
--- NOTE | 2017-04-20 19:07 | PRG ---
DATE OF SERVICE: 04/20/2017 SUBJECTIVE: He developed atrial fibrillation yesterday. Now it is rate controlled. He is currentl y on IV Cardizem. No current symptoms. PHYSICAL EXAMINATION: VITAL SIGNS: Blood pressure 159/82, pulse 68, temperature 97.2. LUNGS: Clear to auscultation. CARDIAC: Irregularly irregular. ABDOMEN: Soft, nontender, nondistended. EXTREMITIES: No edema. IMPRESSION: 1. Post operative atrial fibrillation. 2. Hypotension. 3. Colectomy. RECOMMENDATIONS: 1. Add Lopressor 25 one p.o. b.i.d. for better rate control in hopes of decreasing Cardizem. 2. Consider adding anticoagulation therapy. We will discuss with Dr. Doshi. 3. Titrate down the Cardizem.
[2017-04-20] MEDS: Zolpidem Tartrate 5 MG TAB PO PRN (21:44)
[2017-04-20] MEDS: Latanoprost 0.005% Ophth Soln 2.5 ml Bottle EA EYE SCH (21:45)
[2017-04-20] MEDS: Metoprolol Tartrate 25 MG TAB PO SCH (21:48)
[2017-04-21] MEDS: HYDROcodone/Acetaminophen 5/325 mg Tablet PO PRN (00:56)
[2017-04-21 05:54] LABS: #Eosinphils 0.2 thou/uL (0.0-0.7); #Monocytes 0.7 thou/uL (0.11-0.59); #Neutrophils 6.5 thou/uL (1.40-6.50); %Basophils 0.2 % (0.0-1.0); %Eosinophils 2.4 % (0.0-10.0); %Lymphocytes 11.7 % (21.0-51.0); %Monocytes 8.3 % (0.0-10.0); Hematocrit 35.5 % (42.0-52.0); Mean Platelet Volume 7.3 fL (7.4-10.4); Red Blood Cell (RBC) Count 3.89 mill/uL (4.70-6.10); White Blood Cell (WBC) Count 8.4 thou/uL (4.8-10.8)
[2017-04-21 06:01] LABS: Anion Gap 8 mmol/L (10-20); BUN (Urea Nitrogen) 24 mg/dL (8.4-25.7); Calc. Creatinine Clearance 84 mL/min (70-130); Calcium 8.3 mg/dL (7.8-10.44); Carbon Dioxide 28 mmol/L (23-31); Chloride 107 mmol/L (98-107); Estimated GFR-MDRD 84
--- NOTE | 2017-04-21 08:01 | PRG ---
DATE OF SERVICE: 04/21/2017 The patient is feeling well, he wants to go home. PHYSICAL EXAMINATION: VITAL SIGNS: Temperature 97.7, pulse 60, blood pressure 153/72, O2 sat 94%. He is currently on a C ardizem drip 5 mg per hour. His heart rate is in sinus rhythm. HEENT: Unremarkable. NECK: No JVD. CARDIAC: S1, S2 regular. LUNGS: Clear. ABDOMEN: Soft, nontender. Surgical wound is healing well. EXTREMITIES: No edema. LABORATORY DATA: Sodium 139, potassium 3.5, chloride 107, CO2 28, BUN 24, creatinine 0.8, glucose 9 5. White blood cell count 8.4, hematocrit 35.5, platelet count 120. ASSESSMENT: 1. Status post postoperative hypotension secondary to relative adrenal insufficiency. 2. Paroxysmal atrial fibrillation, now sinus rhythm. PLAN: 1. Stop the Cardizem drip. 2. Tomorrow will be the last day of steroids. 3. He is cleared to go home from my standpoint.
[2017-04-21] MEDS: predniSONE 5 MG TAB PO SCH (08:30)
[2017-04-21] MEDS: Sulfameth/Trimethoprim DS 800-160mg TAB PO SCH (08:30)
[2017-04-21] MEDS: Metoprolol Tartrate 25 MG TAB PO SCH (08:30)
[2017-04-21] MEDS: Timolol 0.5% Ophth Soln 5 ml Bottle R EYE SCH (08:31)
[2017-04-21] MEDS: Enoxaparin Sodium 40 MG/0.4 ML SYRINGE SC SCH (08:32)
[2017-04-21] MEDS: Brimonidine Tartrate 0.2% Ophth Soln 5 ml Bottle R EYE SCH (08:33)
--- NOTE | 2017-04-21 09:46 | PDOC.CTH ---
Cardiology Progress Note - Subjective Doing well. No complaints. Coverted to SRT overnight on BB. - Objective Vital Signs Temp Pulse Resp BP BP Pulse Ox 04/21/17 08:31 69 04/21/17 07:40 98.1 F 69 19 175/85 H 96 04/21/17 04:00 97.7 F 60 16 153/72 H 94 L 04/21/17 00:00 97.9 F 68 16 159/73 H 04/20/17 21:49 74 165/76 H Weight 203 lb 3.2 oz 04/20/17 04/21/17 04/22/17 06:59 06:59 06:59 Intake Total 383 1860 Output Total 1650 2050 Balance -1267 -190 - Physical Examination General/Neuro: alert & oriented x3, NAD Neck: carotid US brisk, no JVD present Lungs: CTA, unlabored respirations Heart: PMI normal, RRR Abdomen: no HSM, NT/ND, soft Extremities: + femoral B - Telemetry Telemetry Rhythm: SR - Labs Result Diagrams: 04/21/17 05:13 04/21/17 05:13 Troponin/CKMB CK-MB (CK-2) 1.1 ng/mL (0-6.6) 04/15/17 11:47 Troponin I Less than 0.010 ng/mL (< 0.028) 04/15/17 11:47 - Assessment/Plan 1. Hypotension-resolved 2. PAF-Likely secondary to post op state. Now SR. Recommned continuing BB. Recommend o/p 3 week event recorder (I will set up0 fu with me in 102 weeks. Ok for dc from CV standpoint
[2017-04-21 18:05] VITALS: BP 158/79; TEMP 98.1
== END 2017-04-21 20:04 | disposition home health service (06) | DRG 654 ==
LOC: SURG A 05:41 → SJJU 17:16 → CCU 23:43 → SURG A 04-17 12:35 → 2NO 04-19 15:12
PROVIDERS: ADMIT Surgery; ATTEND Surgery
PROC: 0DTG0ZZ Resection of Left Large Intestine, Open Approach (ICD-10-PCS; principal; 2017-04-14)
PROC: 0TQB0ZZ Repair Bladder, Open Approach (ICD-10-PCS; 2017-04-14)
PROC: 0TJB8ZZ Inspection of Bladder, Via Natural or Artificial Opening Endoscopic (ICD-10-PCS; 2017-04-14)
PROC: 30233N1 Transfusion of Nonautologous Red Blood Cells into Peripheral Vein, Percutaneous Approach (ICD-10-PCS; 2017-04-15)
DX: N32.1 Vesicointestinal fistula (principal); K55.1 Chronic vascular disorders of intestine; E27.49 Other adrenocortical insufficiency; I48.0 Paroxysmal atrial fibrillation; E86.0 Dehydration; I11.9 Hypertensive heart disease without heart failure; E87.6 Hypokalemia; E78.5 Hyperlipidemia, unspecified; K43.5 Parastomal hernia without obstruction or gangrene; I95.81 Postprocedural hypotension; M19.011 Primary osteoarthritis, right shoulder; Z85.46 Personal history of malignant neoplasm of prostate; Z92.3 Personal history of irradiation; Z93.2 Ileostomy status; M19.012 Primary osteoarthritis, left shoulder
CPT/HCPCS: 36415; 36416; 36430; 74150; 80048; 82533; 82553; 83036; 83880; 84300; 84484; 85025; 85379; 85610; 85730; 86850; 86900; 86901; 88307; 93005; 93010; 93306; A4216; C1758; C1769; G8978-GP-CK; G8979-GP-CK; G8980-GP-CK; J0131; J0670; J0694; J1265; J1650; J1720; J1885; J2001; J2250; J2405; J2704; J2795; J3010; J3480; J7050; P9016; Q9961; Q9968

== ENCOUNTER 2017-05-14 08:39 | Outpatient (CLI) | payer MEDICARE ==
--- NOTE | 2017-05-14 12:51 | RAD ---
GASTROGRAFIN ENEMA: History: 82-year-old male with history of colovesicular fistula and colonic anastomosis. Comparison: Abdomen and pelvic CT scan without contrast, 04-15-17. FINDINGS: Strategic Development Manager film demonstrates post anastomotic sutures in the sigmoid rectal region. Right sided ostomy ba g is noted. Gastrografin contrast media was introduced per rectum which flowed easily past the anast omosis. There was no evidence for colovesicular fistula seen. Contrast media filled into the splenic flexure, transverse colon, right colon and emptying into the terminal ileum with emptying into the ostomy bag. There was some solid intracolonic fecal material. There was a somewhat right sided proje ction at the site of the anastomosis, probably related to an end to side type anastomosis with a alejandra ewhat resultant pseudo diverticulum. No evidence of contrast extravasation, stricture, or othe r significant acute process. IMPRESSION: No evidence for colovesicular fistula. Unremarkable appearing anastomosis at the sigmoid rectal junc tion. Some intraluminal material, consistent with some fecal material emptying into a normal appeari ng terminal ileum. No appearing partially visualized appendix. POS: NATE
[2017-05-14] MEDS ORDERED: MD-Gastroview 120 ML BOT ONE (13:37)
== END 2017-05-14 08:40 | disposition home or self-care (01) ==
LOC: RAD 08:39
PROVIDERS: ATTEND Surgery
DX: N32.1 Vesicointestinal fistula (principal)
CPT/HCPCS: 74270

== ENCOUNTER 2017-06-08 09:12 | Inpatient (IN) | payer MEDICARE ==
[2017-06-08] MEDS ORDERED: Fentanyl 100 MCG/2 ML VIAL ONE ×3 (13:26→18:02)
[2017-06-08] MEDS ORDERED: cefOXitin Sodium 2 GM, Syringe 1 ML in Sterile Water 10 ML SLOW IVP SCH ×2 (13:30→22:00)
[2017-06-08 13:31] LABS: Hemoglobin A1c 5.1 % (4.0-6.0)
[2017-06-08 13:32] LABS: Anion Gap 11 mmol/L (10-20); BUN (Urea Nitrogen) 16 mg/dL (8.4-25.7); Calc. Creatinine Clearance 53 mL/min (70-130); Calcium 9.6 mg/dL (7.8-10.44); Carbon Dioxide 27 mmol/L (23-31); Chloride 104 mmol/L (98-107); Estimated GFR-MDRD 56
[2017-06-08 13:55] LABS: #Eosinphils 0.1 thou/uL (0.0-0.7); #Lymphocytes 1.9 thou/uL (1.20-3.40); #Monocytes 0.5 thou/uL (0.11-0.59); #Neutrophils 4.3 thou/uL (1.40-6.50); %Basophils 0.1 % (0.0-1.0); %Eosinophils 1.4 % (0.0-10.0); %Lymphocytes 27.5 % (21.0-51.0); %Monocytes 7.6 % (0.0-10.0); Hematocrit 39.5 % (42.0-52.0); Mean Platelet Volume 6.9 fL (7.4-10.4); Red Blood Cell (RBC) Count 4.43 mill/uL (4.70-6.10); White Blood Cell (WBC) Count 6.7 thou/uL (4.8-10.8)
[2017-06-08] MEDS ORDERED: Glycopyrrolate 0.2 MG/ML 5 ML SYRINGE ONE (14:34)
[2017-06-08] MEDS ORDERED: Lidocaine 1% PF 5 ML VIAL ONE (14:34)
[2017-06-08] MEDS ORDERED: PHENYLEPHRINE-NS 100 MCG/ML 10 ML SYRINGE ONE (14:34)
[2017-06-08] MEDS ORDERED: Propofol 200 MG/20 ML VIAL ONE (14:34)
[2017-06-08] MEDS ORDERED: ePHEDrine/0.9% NaCl/PF SYRINGE 50 mg/10 ml ONE (14:34)
[2017-06-08] MEDS ORDERED: Bupivacaine/Epinephrine 0.25% 30 ML VIAL ONE (14:45)
[2017-06-08] MEDS ORDERED: Fentanyl 20 MCG/ML 250 ML ONE (17:53)
[2017-06-08] MEDS ORDERED: Zolpidem Tartrate 5 MG TAB PO PRN (18:29)
[2017-06-08] MEDS ORDERED: Fentanyl 5000 MCG/250 ML CADD IVPB PRN (18:29)
[2017-06-08] MEDS ORDERED: diphenhydrAMINE 25 MG CAP PO PRN (18:29)
[2017-06-08] MEDS ORDERED: Naloxone HCl 0.4 mg/ml Vial IV PRN (18:29)
[2017-06-08] MEDS ORDERED: diphenhydrAMINE 50 MG/ML VIAL IM PRN (18:29)
[2017-06-08] MEDS ORDERED: diphenhydrAMINE 50 MG/ML VIAL IVP PRN (18:29)
[2017-06-08] MEDS ORDERED: Promethazine HCl 25 MG/ML VIAL SLOW IVP PRN (18:29)
[2017-06-08] MEDS ORDERED: Promethazine HCl 25 MG/ML VIAL IM PRN ×2 (18:29)
[2017-06-08] MEDS ORDERED: Ondansetron HCl/PF 4 MG/2 ML Vial IVP PRN ×2 (18:29)
[2017-06-08] MEDS ORDERED: Communication Order-Pharmacy FS SCH (18:30)
[2017-06-08] MEDS ORDERED: Dextrose 5 % And 0.9 % NaCl 1,000 ML IV SCH (19:30)
[2017-06-08] MEDS: Dextrose 5 % And 0.9 % NaCl 1,000 ML IV SCH (20:11)
[2017-06-08] MEDS: Acetaminophen 1,000 MG in Premix Bag 1 BAG IVPB SCH ×2 (20:13→23:37)
[2017-06-08] MEDS ORDERED: Famotidine/PF 20 mg/2ml Vial SLOW IVP SCH (21:00)
[2017-06-08] MEDS: Metoprolol Tartrate 25 MG TAB PO SCH ×2 (21:43→22:01)
[2017-06-08] MEDS: Simvastatin 40 MG TAB PO SCH ×2 (21:43→22:02)
[2017-06-08] MEDS: Famotidine/PF 20 mg/2ml Vial SLOW IVP SCH (21:43)
[2017-06-08] MEDS: Timolol 0.5% Ophth Soln 5 ml Bottle R EYE SCH (21:43)
[2017-06-08] MEDS: Brimonidine Tartrate 0.2% Ophth Soln 5 ml Bottle R EYE SCH (21:45)
[2017-06-08] MEDS: Latanoprost 0.005% Ophth Soln 2.5 ml Bottle EA EYE SCH (21:46)
[2017-06-08] MEDS: cefOXitin Sodium 2 GM, Syringe 1 ML in Sterile Water 10 ML SLOW IVP SCH (23:36)
[2017-06-09 01:20] VITALS: BMI 28.1
[2017-06-09] MEDS: Dextrose 5 % And 0.9 % NaCl 1,000 ML IV SCH ×2 (02:14→19:51)
[2017-06-09] MEDS: Acetaminophen 1,000 MG in Premix Bag 1 BAG IVPB SCH ×3 (05:26→18:19)
[2017-06-09 05:31] LABS: #Monocytes 0.6 thou/uL (0.11-0.59); #Neutrophils 4.2 thou/uL (1.40-6.50); %Basophils 0.3 % (0.0-1.0); %Eosinophils 0.6 % (0.0-10.0); %Lymphocytes 17.1 % (21.0-51.0); %Monocytes 9.8 % (0.0-10.0); Hematocrit 33.2 % (42.0-52.0); Mean Platelet Volume 7.1 fL (7.4-10.4); Red Blood Cell (RBC) Count 3.71 mill/uL (4.70-6.10); White Blood Cell (WBC) Count 5.8 thou/uL (4.8-10.8)
[2017-06-09 05:55] LABS: Anion Gap 8 mmol/L (10-20); BUN (Urea Nitrogen) 12 mg/dL (8.4-25.7); Calc. Creatinine Clearance 64 mL/min (70-130); Calcium 8.5 mg/dL (7.8-10.44); Carbon Dioxide 26 mmol/L (23-31); Chloride 109 mmol/L (98-107); Estimated GFR-MDRD 69
[2017-06-09] MEDS: Amlodipine 5 MG TAB PO SCH (08:53)
[2017-06-09] MEDS: Ascorbic Acid 500 mg Chewable Tablet PO SCH (08:54)
[2017-06-09] MEDS: Metoprolol Tartrate 25 MG TAB PO SCH ×2 (08:54→22:14)
[2017-06-09] MEDS: Aspirin 81 mg Enteric Coated Tablet PO SCH (08:54)
[2017-06-09] MEDS: Enoxaparin Sodium 40 MG/0.4 ML SYRINGE SC SCH (08:54)
[2017-06-09] MEDS: Meloxicam 7.5 MG TAB PO SCH (08:54)
[2017-06-09] MEDS: Tamsulosin HCl 0.4 MG CAP PO SCH (08:54)
[2017-06-09] MEDS: Hydrochlorothiazide 25 MG TAB PO SCH (08:55)
[2017-06-09] MEDS: Famotidine/PF 20 mg/2ml Vial SLOW IVP SCH ×2 (08:55→22:13)
[2017-06-09] MEDS: Vit A,C & E/Lutein/Minerals Tablet PO SCH (08:55)
[2017-06-09] MEDS: Multivitamin W/ Minerals 1 TAB PO SCH (08:55)
[2017-06-09] MEDS: cefOXitin Sodium 2 GM, Syringe 1 ML in Sterile Water 10 ML SLOW IVP SCH ×3 (08:57→23:57)
[2017-06-09] MEDS: Sulfameth/Trimethoprim SS 400-80MG TAB PO SCH (08:58)
[2017-06-09] MEDS: Brimonidine Tartrate 0.2% Ophth Soln 5 ml Bottle R EYE SCH ×2 (08:58→22:16)
[2017-06-09] MEDS: Finasteride 5 MG TAB PO SCH (08:58)
[2017-06-09] MEDS: Timolol 0.5% Ophth Soln 5 ml Bottle R EYE SCH ×2 (08:59→22:15)
[2017-06-09] MEDS ORDERED: FLU VACC TS2017-18 (>65YR) 0.5 ML SYRINGE IM ONE (09:00)
[2017-06-09] MEDS ORDERED: Potassium Chloride 40 MEQ in Sodium Chloride 0.9% 250 ML 250 ML IVPB SCH (10:45)
--- NOTE | 2017-06-09 20:59 | PRG ---
DATE OF SERVICE: 06/09/2017 SUBJECTIVE: Mr. Butt is feeling fine. He denies pain or nausea. He has passed a small eamon unt of gas and is tolerating ice chips. Vital signs are normal. Urine output has been all right. William florez has had some problems voiding and has had to self-catheterize once during the day as well as his us ual morning and evening self-catheterization. Labs are okay. Abdomen is soft. There is some serosa nguineous drainage on the ileostomy site bandage and this will be changed. Bowel sounds are present and his abdomen is soft and nondistended. ASSESSMENT: Status post ileostomy takedown tolerating ice chips and with passage of flatus, we will advance his diet to clears if he tolerates this, we will go to full liquids tomorrow.
[2017-06-09] MEDS: Simvastatin 40 MG TAB PO SCH (22:14)
[2017-06-09] MEDS: Latanoprost 0.005% Ophth Soln 2.5 ml Bottle EA EYE SCH (22:15)
[2017-06-10] MEDS: Dextrose 5 % And 0.9 % NaCl 1,000 ML IV SCH (02:23)
--- NOTE | 2017-06-10 02:34 | PDOC.OP ---
Operative Note - Operative Note Operative Note: PROCEDURE: Ileostomy takedown DATE OF PROCEDURE: 06/08/2017 SURGEON: Rochelle Doshi M.D. PREOPERATIVE DIAGNOSES: Unwanted ileostomy POSTOPERATIVE DIAGNOSIS: Unwanted ileostomy HISTORY: Patient is status post left colectomy and repair of colovesical fistula. He has a diverting ileostomy which he would like to have reversed.. Barium enema of the colon revealed no evidence of anastomotic leak or stricture. PROCEDURE IN DETAIL: After informed consent was obtained and appropriate preoperative antibiotics administered the patient was taken to the operating he was placed in supine position and general endotracheal anesthesia was administered. The ileostomy site was closed with a running silk suture through the skin edges and the abdomen was prepped and draped in standard sterile fashion. An elliptical incision was made incorporating the ileostomy and dissection carried down to the parastomal hernia sac which was opened. The ileum was dissected free circumferentially dividing the suture securing it to the rectus sheath. The ileum proximal and distal to the segment used for the ileostomy was drawn up into the incision and a [id number] functional end-to- end stapled anastomosis created. The segment of ileum used for the ileostomy was resected and the mesenteric defect closed. The ileal anastomosis was placed into the abdominal cavity which was irrigated. The patient did not have sufficient omentum to place anterior to the bowel but Seprafilm was placed. The posterior sheath was then closed with a running PDS suture under direct vision. The hernia sac was then excised and discarded. The anterior rectus sheath was closed under direct vision and the subcutaneous space copiously irrigated. The subcutaneous tissues were reapproximated at intervals with 3-0 Monocryl sutures. The skin was reapproximated at intervals as well and iodoform gauze moises placed into the subcutaneous space. The wound was dressed with gauze and Tegaderm and the patient was extubated and taken to the recovery room in good condition. Estimated blood loss is minimal. There were no complications. Specimen is ileostomy.
[2017-06-10 05:02] LABS: #Eosinphils 0.1 thou/uL (0.0-0.7); #Monocytes 0.5 thou/uL (0.11-0.59); #Neutrophils 4.9 thou/uL (1.40-6.50); %Basophils 0.2 % (0.0-1.0); %Eosinophils 1.3 % (0.0-10.0); %Lymphocytes 15.8 % (21.0-51.0); %Monocytes 7.7 % (0.0-10.0); Hematocrit 32.5 % (42.0-52.0); Mean Platelet Volume 6.6 fL (7.4-10.4); Red Blood Cell (RBC) Count 3.61 mill/uL (4.70-6.10); White Blood Cell (WBC) Count 6.6 thou/uL (4.8-10.8)
[2017-06-10 05:15] LABS: Anion Gap 8 mmol/L (10-20); BUN (Urea Nitrogen) 9 mg/dL (8.4-25.7); Calc. Creatinine Clearance 64 mL/min (70-130); Calcium 8.5 mg/dL (7.8-10.44); Carbon Dioxide 24 mmol/L (23-31); Chloride 110 mmol/L (98-107); Estimated GFR-MDRD 68
[2017-06-10] MEDS: cefOXitin Sodium 2 GM, Syringe 1 ML in Sterile Water 10 ML SLOW IVP SCH ×2 (08:20→16:23)
[2017-06-10] MEDS: Meloxicam 7.5 MG TAB PO SCH (08:20)
[2017-06-10] MEDS: Hydrochlorothiazide 25 MG TAB PO SCH (08:20)
[2017-06-10] MEDS: Amlodipine 5 MG TAB PO SCH (08:20)
[2017-06-10] MEDS: Vit A,C & E/Lutein/Minerals Tablet PO SCH (08:20)
[2017-06-10] MEDS: Finasteride 5 MG TAB PO SCH (08:21)
[2017-06-10] MEDS: Ascorbic Acid 500 mg Chewable Tablet PO SCH (08:21)
[2017-06-10] MEDS: Famotidine/PF 20 mg/2ml Vial SLOW IVP SCH (08:21)
[2017-06-10] MEDS: Aspirin 81 mg Enteric Coated Tablet PO SCH (08:21)
[2017-06-10] MEDS: Metoprolol Tartrate 25 MG TAB PO SCH (08:21)
[2017-06-10] MEDS: Multivitamin W/ Minerals 1 TAB PO SCH (08:21)
[2017-06-10] MEDS: Tamsulosin HCl 0.4 MG CAP PO SCH (08:21)
[2017-06-10] MEDS: Enoxaparin Sodium 40 MG/0.4 ML SYRINGE SC SCH (08:21)
[2017-06-10] MEDS: Timolol 0.5% Ophth Soln 5 ml Bottle R EYE SCH (08:22)
[2017-06-10] MEDS: Brimonidine Tartrate 0.2% Ophth Soln 5 ml Bottle R EYE SCH (08:22)
[2017-06-10] MEDS: Sulfameth/Trimethoprim SS 400-80MG TAB PO SCH (08:22)
[2017-06-10] MEDS ORDERED: HYDROcodone/Acetaminophen 5/325 mg Tablet PO PRN ×2 (10:03)
[2017-06-10] MEDS ORDERED: Potassium Chloride 40 MEQ in Sodium Chloride 0.9% 250 ML 250 ML IVPB SCH (10:45)
[2017-06-10] MEDS ORDERED: traMADol HCl 50 MG TAB PO PRN ×2 (11:24)
[2017-06-10] MEDS ORDERED: Citrucel 500 MG TAB PO SCH ×2 (11:30→21:00)
[2017-06-10] MEDS ORDERED: Potassium Chloride 20 MEQ TAB PO SCH ×2 (11:30→17:00)
[2017-06-10 17:03] VITALS: BP 150/74; TEMP 98.4
[2017-06-10] MEDS ORDERED: Famotidine 20 MG TAB PO SCH (21:00)
== END 2017-06-10 18:38 | disposition home health service (06) | DRG 941 ==
LOC: SURG A 12:09 → SJJU 17:35
PROVIDERS: ADMIT Surgery; ATTEND Surgery
PROC: 0DBB0ZZ Excision of Ileum, Open Approach (ICD-10-PCS; principal; 2017-06-08)
PROC: 0WQF0ZZ Repair Abdominal Wall, Open Approach (ICD-10-PCS; 2017-06-08)
DX: Z93.2 Ileostomy status (principal); Z43.2 Encounter for attention to ileostomy; K43.5 Parastomal hernia without obstruction or gangrene; E78.5 Hyperlipidemia, unspecified
CPT/HCPCS: 36415; 36416; 80048; 83036; 85025; 88304; 88305; 93005; 93010; A4216; J0131; J0694; J1650; J2001; J2704; J3010; J3480; J7050; S0028

== ENCOUNTER 2017-07-09 09:59 | Day surgery (SDC) | payer MEDICARE ==
[2017-07-08 08:10] VITALS: BMI 29.6
[2017-07-09 11:11] LABS: #Eosinphils 0.1 thou/uL (0.0-0.7); #Lymphocytes 1.5 thou/uL (1.20-3.40); #Monocytes 0.6 thou/uL (0.11-0.59); #Neutrophils 4.6 thou/uL (1.40-6.50); %Basophils 0.1 % (0.0-1.0); %Eosinophils 1.9 % (0.0-10.0); %Lymphocytes 22.3 % (21.0-51.0); %Monocytes 8.2 % (0.0-10.0); %Neutrophils 67.6 % (42.0-75.0); Mean Corpuscular Hemoglobin 29.7 pg (27.0-31.0); Mean Corpuscular Volume 90.1 fl (80.0-94.0); Mean Platelet Volume 7.2 fL (7.4-10.4); Platelet Count 164 thou/uL (130-400); RBC Distribution Width 14.4 % (11.5-14.5); Red Blood Cell (RBC) Count 4.04 mill/uL (4.70-6.10); White Blood Cell (WBC) Count 6.8 thou/uL (4.8-10.8)
[2017-07-09 11:34] LABS: Anion Gap 12 mmol/L (10-20); BUN (Urea Nitrogen) 22 mg/dL (8.4-25.7); Calc. Creatinine Clearance 53 mL/min (70-130); Calcium 9.8 mg/dL (7.8-10.44); Carbon Dioxide 27 mmol/L (23-31); Chloride 104 mmol/L (98-107); Estimated GFR-MDRD 52; Glucose 98 mg/dL (83-110); Potassium 3.6 mmol/L (3.5-5.1); Sodium 139 mmol/L (136-145)
[2017-07-09] MEDS ORDERED: Clindamycin/D5W 900 mg/50 ml Premix Bag ONE (11:58)
[2017-07-09] MEDS ORDERED: Bupivacaine/Epinephrine 0.25% 30 ML VIAL ONE (12:14)
[2017-07-09] MEDS ORDERED: Fentanyl 100 MCG/2 ML VIAL ONE ×3 (13:32→17:26)
[2017-07-09] MEDS ORDERED: Promethazine HCl 25 MG/ML VIAL ONE (13:32)
[2017-07-09] MEDS ORDERED: Levofloxacin 500 mg/D5W 100 ml Premix Bag ONE (14:16)
[2017-07-09] MEDS ORDERED: PHENYLEPHRINE-NS 100 MCG/ML 10 ML SYRINGE ONE ×3 (14:55→17:04)
[2017-07-09] MEDS ORDERED: Promethazine HCl 25 MG/ML VIAL SLOW IVP PRN (16:38)
[2017-07-09] MEDS ORDERED: Ondansetron HCl/PF 4 MG/2 ML Vial IVP PRN ×2 (16:38→18:33)
[2017-07-09] MEDS ORDERED: Morphine Sulfate 2 MG/ML SYRINGE SLOW IVP PRN (16:38)
[2017-07-09] MEDS ORDERED: Promethazine HCl 25 MG/ML VIAL IM PRN (16:38)
[2017-07-09] MEDS ORDERED: ePHEDrine/0.9% NaCl/PF SYRINGE 50 mg/10 ml ONE (17:04)
[2017-07-09] MEDS ORDERED: Glycopyrrolate 0.2 MG/ML 5 ML SYRINGE ONE (17:04)
[2017-07-09] MEDS ORDERED: Calcium Chloride 1 GM/10 ML Abboject SYRINGE ONE (17:04)
[2017-07-09] MEDS ORDERED: Propofol 200 MG/20 ML VIAL ONE (17:04)
[2017-07-09] MEDS ORDERED: Ondansetron HCl/PF 4 MG/2 ML Vial ONE (17:04)
[2017-07-09] MEDS ORDERED: Dexamethasone 20 MG/5 ML VIAL ONE (17:04)
[2017-07-09] MEDS ORDERED: Lidocaine 1% PF 5 ML VIAL ONE (17:04)
--- NOTE | 2017-07-09 17:08 | PDOC.OP ---
Operative Note - Operative Note Operative Note: PROCEDURE: Open ventral hernia repair with mesh DATE OF PROCEDURE: 07/09/2017 SURGEON: Rochelle Doshi M.D. PREOPERATIVE DIAGNOSES: Ventral incisional hernia POSTOPERATIVE DIAGNOSIS: Ventral incisional hernia HISTORY: Patient is an 82-year-old man with a history of a laparoscopic hand- assisted ileostomy with subsequent laparoscopic hand-assisted sigmoid colectomy and repair of colovesical fistula and ileostomy takedown. He developed a ventral incisional hernia at his hand port site and desires repair. Open repair was chosen over laparoscopic repair due to the patient's unhappiness with the appearance of his hernia bulge. PROCEDURE IN DETAIL: After informed consent was obtained and appropriate preoperative antibiotics were administered patient was taken to the operating room is placed in supine position and general endotracheal anesthesia was administered. A 12 [place] Thomson catheter was placed to decompress the bladder and he was prepped and draped in standard sterile fashion. The patient's previous hand port incision was opened and a large hernia sac was encountered that was densely adherent to the skin. The central portion of the hernia sac was excised with some of the overlying skin due to concern for devascularization of the skin. The entire hernia sac was excised and the fascial edges reapproximated in the midline. The underlying intestines appeared mostly normal with a few adhesions which were taken down under direct vision. There were a few dense adhesive bands creating internal hernias which were resected. The patient's previous ileostomy anastomosis was also adherent to the retroperitoneum creating an internal hernia so this adhesion was also taken down. The small intestine was run and no other adhesions found. The bowel was returned to its normal anatomic position. Due to the patient's transverse colon to rectal anastomosis there was no significant omentum to place between the small bowel and the incision. The defect was about 8 cm long so a 10 x 15 cm piece skirted mesh was obtained. Us was secured with transfascial sutures at multiple points along the edge 3-5 cm out under direct vision, with tacks placed under the skirt between the sutures to prevent bowel getting up between the mesh and the fascia. The fascia was then reapproximated in midline with a running PDS suture with intermittent nylon sutures to reinforce the closure. The subcutaneous tissues were copiously irrigated and reapproximated at intervals with 3-0 Monocryl sutures. The skin was closed with skin kimberly and a Prevena wound dressing placed. The patient was extubated and taken to the recovery room in good condition. Estimated blood loss is minimal. There were no complications. There are no specimens.
[2017-07-09] MEDS ORDERED: traMADol HCl 50 MG TAB PO PRN ×2 (18:32)
[2017-07-09] MEDS ORDERED: HYDROcodone/Acetaminophen 7.5/325 mg Tablet PO PRN ×2 (18:32)
[2017-07-09] MEDS ORDERED: Morphine 2 MG/ML SYRINGE SLOW IVP PRN ×2 (18:35→18:37)
[2017-07-09] MEDS: Sodium Chloride 0.9% 1,000 ML IV SCH (21:17)
[2017-07-09] MEDS: Acetaminophen 1,000 MG in Premix Bag 1 BAG IVPB SCH (23:09)
[2017-07-10] MEDS: Sodium Chloride 0.9% 1,000 ML IV SCH (04:44)
[2017-07-10] MEDS: Acetaminophen 1,000 MG in Premix Bag 1 BAG IVPB SCH (05:11)
[2017-07-10 08:35] VITALS: TEMP 97.6
[2017-07-10 12:10] VITALS: BP 124/69
== END 2017-07-10 14:19 | disposition home or self-care (01) ==
LOC: SDC 09:59 → SURG B 17:02 → SDC 07-10 14:19
PROVIDERS: ATTEND Surgery
PROC: 0WUF0JZ Supplement Abdominal Wall with Synthetic Substitute, Open Approach (ICD-10-PCS; principal; 2017-07-09)
DX: K43.2 Incisional hernia without obstruction or gangrene (principal); Z88.1 Allergy status to other antibiotic agents; Z98.890 Other specified postprocedural states
CPT/HCPCS: 80048; 85025; J0131; J1100; J1956; J2001; J2405; J2550; J2704; J3010; J3490

== ENCOUNTER 2017-08-26 10:42 | Outpatient (CLI) | payer MEDICARE ==
--- NOTE | 2017-08-26 13:46 | CT ---
CT THORACIC SPINE NONCONTRAST: Date: 08/26/17 INDICATION: Back pain. COMPARISON: Reference made to 10/12/16. FINDINGS: Redemonstration of multilevel prominent degenerative change with multilevel bridging anterior osteoph ytes throughout the thoracic spine. Degenerative change remains most pronounced at the T10-11 level w ith exuberant osteophytosis, prominent end plate sclerosis, and degenerative erosive change. On the p rior exam, there was component of osseous fusion at the posterior confines of the [place] disc space, which is now at least in part discontiguous with development of a mild degree of spondylolisthesis (G rade I) at T10-11 level. There is posterior decompression at this level. Contents of vertebral canal are limited on assessment of noncontrast CT imaging. However, status post decompressive surgery, ther e has been improved patency of the vertebral canal. There does remain, however, a probable mild to mo derate component of cord compromise given the developing listhesis. Multifocal osseous lucencies are grossly stable and may be related to areas of osseous demineralizati on. The possibility of an infiltrative process cannot be entirely excluded. There is left convexity c urvature of the low thoracic spine. There is mild bilateral multilevel osseous compromise of the neural foramina throughout the thoracic spine related to degenerative osseous hypertrophy/osteophyte formation. 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 The degree of compromise is primarily due to developing listhesis related to the progressive degenerative change. At the T10- 11 level, there is also mild osseous compromise of the neural foramina. POS: NATE
== END 2017-08-26 10:43 | disposition home or self-care (01) ==
LOC: TBSIIMAG 10:42
PROVIDERS: ATTEND Neurological Surgery
DX: M54.6 Pain in thoracic spine (principal); M47.894 Other spondylosis, thoracic region; M48.8X4 Other specified spondylopathies, thoracic region
CPT/HCPCS: 72128

== ENCOUNTER 2017-10-25 15:07 | Inpatient (IN) | payer MEDICARE ==
[2017-10-25] MEDS ORDERED: Sodium Chloride 0.9% 1,000 ML IV SCH (16:00)
[2017-10-25] MEDS ORDERED: diphenhydrAMINE 25 MG CAP PO SCH (16:00)
[2017-10-25 16:37] VITALS: BMI 32.5
[2017-10-25 17:51] LABS: #Eosinphils 0.1 thou/uL (0.0-0.7); #Lymphocytes 1.3 thou/uL (1.20-3.40); #Monocytes 0.7 thou/uL (0.11-0.59); #Neutrophils 3.5 thou/uL (1.40-6.50); %Basophils 0.3 % (0.0-1.0); %Eosinophils 2.5 % (0.0-10.0); %Lymphocytes 23.5 % (21.0-51.0); %Monocytes 11.6 % (0.0-10.0); %Neutrophils 62.2 % (42.0-75.0); Anisocytosis SLIGHT = 6-15 cells (100X) (0-5/hpf); Hemoglobin 7.2 g/dL (14.0-18.0); Hypochromia SLIGHT = 6-15 cells (100X) (0-5/hpf); MDiff Complete? YES; Mean Corpuscular HGB CONC 30.8 g/dL (32.0-36.0); Mean Corpuscular Hemoglobin 22.8 pg (27.0-31.0); Mean Corpuscular Volume 74.1 fl (80.0-94.0); Mean Platelet Volume 7.8 fL (7.4-10.4); Microcytosis SLIGHT = 6-15 cells (100X) (0-5/hpf); PLT Morphology Comment Appears Adequate; Platelet Count 215 thou/uL (130-400); RBC Distribution Width 16.6 % (11.5-14.5); Red Blood Cell (RBC) Count 3.16 mill/uL (4.70-6.10); White Blood Cell (WBC) Count 5.7 thou/uL (4.8-10.8)
[2017-10-25 17:55] LABS: ALT (SGPT) 10 U/L (8-55); AST (SGOT) 23 U/L (5-34); Albumin 4.2 g/dL (3.4-4.8); Alkaline Phosphatase 78 U/L (40-150); Anion Gap 10 mmol/L (10-20); BUN (Urea Nitrogen) 28 mg/dL (8.4-25.7); Bilirubin, Total 0.2 mg/dL (0.2-1.2); Calc. Creatinine Clearance 40 mL/min (70-130); Calcium 9.4 mg/dL (7.8-10.44); Carbon Dioxide 27 mmol/L (23-31); Chloride 106 mmol/L (98-107); Estimated GFR-MDRD 34; Globulin 2.6 g/dL (2.4-3.5); Glucose 97 mg/dL (83-110); Potassium 4.2 mmol/L (3.5-5.1); Protein, Total 6.8 g/dL (5.8-8.1); Sodium 139 mmol/L (136-145)
[2017-10-25] MEDS ORDERED: GoLYTELY 4,000 ml Bottle PO SCH ×2 (18:30→20:30)
[2017-10-25] MEDS: Pantoprazole 40 MG VIAL IVP SCH (20:34)
--- NOTE | 2017-10-25 20:35 | CON ---
DATE OF CONSULTATION: 10/25/2017 GI INPATIENT CONSULTATION REQUESTING PHYSICIAN: Cyril Kinsey M.D. REASON FOR CONSULTATION: Anemia. HISTORY OF PRESENT ILLNESS: Tom Butt is a pleasant 82-year-old man previously seen by sue lpoez GI colleague, Dr. Willie Jack. 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 He underwent several oper ations last year. He had a preoperative colonoscopy in 12/2016, which demonstrated significant sigmo id diverticular disease. In January, he underwent diverting ileostomy. Then, in April, he underwent left hemicolectomy with repair of the fistula. On 06/08/2017, he underwent ileostomy takedown. At t hat time postoperatively, he did have his first episode of atrial fibrillation. He has been seeing Veronica Kinsey for this. Recent echocardiogram has demonstrated only grade I diastolic dysfunction. A bout 1 month ago, the patient states that he was started on anticoagulation with Eliquis. He was see n 10 days ago in the Cardiology Clinic complaining of worsening fatigue and dyspnea on exertion. Lab s were checked and his anticoagulation was changed to Xarelto. However, the labs came back showing s ignificant anemia with hemoglobin 7.2, MCV only 78.5, this is a decline over the previous 4 months wi th last hemoglobin last June was 12.0. The patient was advised to hold his Xarelto, so he has be en off all anticoagulation now for the past week. The patient really does not describe any overt gas trointestinal bleeding, but does state that his stools are usually very dark and has been this way fo r a long time. He does not take any iron supplementation, though I noted is on his medication list. The patient denies any abdominal pain or diarrhea. There is no vomiting or hematemesis. There is n o prior history of peptic ulcer disease. Last EGD back in 2005 was essentially normal. The patient was admitted from the Cardiology Clinic today due to worsening symptoms of anemia. Labs from today a re still pending, but 2 units of RBC transfusion are planned. We are consulted due to the new develo pment of microcytic anemia in the context of recent anticoagulation and fairly recent colon surgery. REVIEW OF SYSTEMS: Full review of systems including constitutional, head, eyes, ears, nose, throat, GI, , cardiovascular, respiratory, musculoskeletal, and neurologic systems is negative except as no benny in the HPI. PAST MEDICAL HISTORY: Prostate cancer; hypertension; hyperlipidemia; paroxysmal atrial fibrillation, diagnosed in 04/2017; complicated sigmoid diverticular disease with colovesical fistula, status post multiple surgeries in late 2017 including ileostomy, followed by left hemicolectomy and fistula repa ir, followed by ileostomy takedown. ALLERGIES: CEPHALOSPORINS. OUTPATIENT MEDICATIONS: Amiloride/hydrochlorothiazide, metoprolol, Meloxicam, Flomax, finasteride, Z ocor, amlodipine, glucosamine, Bactrim, Centrum Silver and vitamin C. SOCIAL HISTORY: Never smoker. FAMILY HISTORY: Noncontributory. PHYSICAL EXAMINATION: VITAL SIGNS: Temperature 97.4, pulse 66, blood pressure 154/78, 100% oxygen saturation on room air. GENERAL: An 82-year-old man sitting up in bed comfortably, in no acute distress. MENTAL: Alert and fully oriented, pleasant, conversational, gives a detailed coherent history. SKIN: He is pale, no jaundice, no rash visible or palpable. EYES: No scleral icterus. Extraocular movements are intact. ENT: Mucous membranes moist, no oral lesions. LYMPH: No submandibular or supraclavicular lymphadenopathy. THYROID: Nontender to palpation. HEART: Regular rate and rhythm, no murmur appreciated. CHEST: Clear to auscultation bilaterally. ABDOMEN: Bowel sounds present, soft and nontender to palpation throughout. No masses or organomegal y appreciated. Multiple surgical scars well healed. EXTREMITIES: No peripheral edema. VESSELS: Radial pulses 2+ bilaterally. NEUROLOGIC: Cranial nerves II-XII intact bilaterally. No focal deficits. LABORATORY STUDIES: WBC 5.7, hemoglobin 7.2, MCV 74.1, and platelets 215, these are stable values fr om 10 days ago. Sodium 139, potassium 4.2, BUN 28, creatinine 1.92. Baseline hemoglobin from 7 was 12.0. ASSESSMENT: 1. Anemia, microcytic, new over the past 4 months. 2. Paroxysmal atrial fibrillation, on anticoagulation with Eliquis and then Xarelto until recently. 3. History of left hemicolectomy for complicated diverticular disease, late 2016. PLAN: I discussed with the patient that this presentation certainly is concerning for subacute blood loss over the past few months, in the context of recent anticoagulation over about the past month. Despite significant decline in hemoglobin, it is unclear whether he has had real overt bleeding. Cer tainly, the stools have been on the dark side and he denies iron supplementation. Further investigat ion is certainly warranted. We discussed possibilities include otherwise asymptomatic peptic ulcer d isease versus possible anastomotic ulcer or erosion at the ileocolonic anastomosis. The patient woul d prefer to take bowel preparation this evening and proceed with EGD and colonoscopy tomorrow, so we will set this up. He is hemodynamically stable. Agree with RBC transfusion, which has already been ordered. I will go ahead and add IV Protonix in the meantime as well. Thank you for the consultation. Please call with questions or concerns.
[2017-10-25] MEDS: Brimonidine Tartrate 0.2% Ophth Soln 5 ml Bottle R EYE SCH (20:36)
[2017-10-25] MEDS: Latanoprost 0.005% Ophth Soln 2.5 ml Bottle EA EYE SCH (20:39)
[2017-10-25] MEDS: Timolol 0.5% Ophth Soln 5 ml Bottle R EYE SCH (21:00)
[2017-10-25] MEDS: Atorvastatin Calcium 20 MG TAB PO SCH (21:48)
--- NOTE | 2017-10-25 22:44 | HP ---
PRIMARY CARE PHYSICIAN: German Shaw MD CHIEF COMPLAINT: Dizziness. HISTORY OF PRESENT ILLNESS: Patient is a very pleasant 82-year-old male with past medical history of chronic atrial fibrillation, on Eliquis; ventral hernia; history of colovesicular fistula with diver ting ileostomy placement; and urinary retention, status post treatment for prostate cancer, who prese nted to the Cardiology Clinic initially with complaints of dizziness and weakness. Patient stated th at for about a week, he has been feeling very dizzy changing from sitting to standing position, felt really weak to his lower extremities. The patient also states that he has been having dark stools fo r several months. The patient states that he takes ibuprofen about four 200 mg tablets in the day an d possible three 200 mg tablets in the evening time for lower back pain. Patient denies any fevers o r chills, any nausea, vomiting, or diarrhea. The patient denies any chest pain; however, he has been having shortness of breath on minimal exertion. 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 The patient was sent to the hospital for further eval uation. PAST MEDICAL HISTORY: 1. History of atrial fibrillation, on Eliquis. 2. Urinary retention from treatment of prostate cancer. 3. History of colovesicular fistula. PAST SURGICAL HISTORY: The patient has had a colovesicular fistula with diverting ileostomy placemen t and also a ventricle hernia. SOCIAL HISTORY: The patient denies any history of smoking or alcohol use. FAMILY HISTORY: Noncontributory. ALLERGIES: Patient is allergic to CEFEPIME and CEPHALOSPORINS. REVIEW OF SYSTEMS: The following complete review of systems was negative, unless otherwise mentioned in the HPI or below: Constitutional: Weight loss or gain, ability to conduct usual activities. Sk in: Rash, itching. Eyes: Double vision, pain. ENT/Mouth: Nose bleeding, neck stiffness, pain, te nderness. Cardiovascular: Palpitations, dyspnea on exertion, orthopnea. Respiratory: Shortness of breath, wheezing, cough, hemoptysis, fever or night sweats. Gastrointestinal: Poor appetite, abdom inal pain, heartburn, nausea, vomiting, constipation, or diarrhea. Genitourinary: Urgency, frequenc y, dysuria, nocturia. Musculoskeletal: Pain, swelling. Neurologic/Psychiatric: Anxiety, depressio n. Allergy/Immunologic: Skin rash, bleeding tendency. LABORATORY RESULTS: White count of 5.7, hemoglobin of 7.2, hematocrit of 23.4, MCV 74.1, platelets o f 215. Chemistry: Sodium 139, potassium 4.2, chloride of 106, BUN of 28, creatinine of 1.92. PHYSICAL EXAMINATION: VITAL SIGNS: Patient's blood pressure is 154/78, 97.6, 81, 18, 97% room air. GENERAL: He is awake, alert, and oriented x3, does not appear in distress. HEENT: Normocephalic, atraumatic. NECK: No lymphadenopathy noted. CARDIOVASCULAR: S1, S2 present, irregularly irregular. LUNGS: Clear to auscultation. No rhonchi or wheezes noted. ABDOMEN: Soft, nontender. Bowel sounds are present x2. He does have a mid abdominal scar. EXTREMITIES: No edema. Pedal pulses are present x2. MEDICATIONS: This is from the documentation, patient takes aspirin 81 mg p.o. daily. He takes Combi manny 1 drop to right eye twice a day, Zocor 40 mg at bedtime, Lopressor 50 mg q.a.m., Proscar 5 mg q.a .m., Flomax 0.4 mg p.o. q.a.m., Mobic one tab q.a.m. and he was on Bactrim 1 q.a.m. and takes a daily multivitamin daily, Nexium 20 mg p.o. daily p.r.n. ASSESSMENT AND PLAN: The patient is a very pleasant 82-year-old man who presents to the hospital wit h complaints of dizziness. 1. Acute blood loss anemia, most likely secondary to either upper GI bleed. Patient is to undergo E GD and colonoscopy in a.m. GI consulted. Patient is on Protonix b.i.d. We will also check iron yakov dies given patient's low MCV. The patient has been taking ibuprofen and Eliquis, which both have bee n stopped. The patient is to receive 2 units of blood transfusion tonight. We will check CBC and BM P in the morning. 2. Atrial fibrillation, rate controlled right now. We will hold off on anticoagulation and also jon l be very careful to start him back on his blood pressure medications given his anemia. 3. Acute kidney injury based on the patient's blood work in the past, his creatinine has been normal in 2017, however, in 2008, it was 2.10; today, it is 1.90. We will continue to monitor. If patient 's creatinine continued to worsen, we would recommend getting a renal ultrasound. 4. Deep venous thrombosis prophylaxis. We will put patient on SCDs.
[2017-10-26 08:10] LABS: #Eosinphils 0.1 thou/uL (0.0-0.7); #Lymphocytes 1.3 thou/uL (1.20-3.40); #Monocytes 0.5 thou/uL (0.11-0.59); #Neutrophils 4.6 thou/uL (1.40-6.50); %Basophils 0.2 % (0.0-1.0); %Eosinophils 1.8 % (0.0-10.0); %Lymphocytes 19.7 % (21.0-51.0); %Neutrophils 70.3 % (42.0-75.0); Hemoglobin 8.7 g/dL (14.0-18.0); Mean Corpuscular HGB CONC 31.7 g/dL (32.0-36.0); Mean Corpuscular Hemoglobin 23.7 pg (27.0-31.0); Mean Corpuscular Volume 74.8 fl (80.0-94.0); Mean Platelet Volume 7.7 fL (7.4-10.4); Platelet Count 216 thou/uL (130-400); Red Blood Cell (RBC) Count 3.67 mill/uL (4.70-6.10); White Blood Cell (WBC) Count 6.5 thou/uL (4.8-10.8)
[2017-10-26 08:20] LABS: Anion Gap 14 mmol/L (10-20); BUN (Urea Nitrogen) 22 mg/dL (8.4-25.7); Calc. Creatinine Clearance 45 mL/min (70-130); Calcium 9.2 mg/dL (7.8-10.44); Carbon Dioxide 25 mmol/L (23-31); Chloride 105 mmol/L (98-107); Estimated GFR-MDRD 38; Glucose 88 mg/dL (83-110); Sodium 140 mmol/L (136-145)
[2017-10-26] MEDS: Pantoprazole 40 MG VIAL IVP SCH ×2 (08:41→21:11)
[2017-10-26] MEDS: Finasteride 5 MG TAB PO SCH (08:41)
[2017-10-26] MEDS: Tamsulosin HCl 0.4 MG CAP PO SCH (08:41)
[2017-10-26] MEDS: Brimonidine Tartrate 0.2% Ophth Soln 5 ml Bottle R EYE SCH ×2 (08:41→21:12)
[2017-10-26] MEDS: Timolol 0.5% Ophth Soln 5 ml Bottle R EYE SCH ×2 (08:42→21:17)
[2017-10-26] MEDS ORDERED: Metoprolol Tartrate 25 MG TAB PO SCH (09:00)
--- NOTE | 2017-10-26 14:12 | PDOC.PN ---
- Subjective Encounter Start Date: 10/26/17 Encounter Start Time: 13:55 Subjective: f/u for GI bleed and acute/subacute anemia s/p 2u PRBC's. Feels ok -: overall but no active bleeding. Plan for EGD/colonoscopy today. - Objective MAR Reviewed: Yes Vital Signs & Weight: Vital Signs (12 hours) Temp Pulse Pulse Resp BP BP BP 10/26/17 09:39 148/69 H 10/26/17 08:42 70 177/76 H 10/26/17 08:00 97.5 F L 70 16 177/76 H 10/26/17 05:45 98.6 F 80 18 142/64 H 10/26/17 04:00 98.6 F 80 20 146/68 H 10/26/17 03:50 98.4 F 77 16 146/68 H Pulse Ox 10/26/17 09:39 10/26/17 08:42 10/26/17 08:00 95 10/26/17 05:45 10/26/17 04:00 94 L 10/26/17 03:50 Weight Weight 214 lb 3.2 oz I&O: 10/25/17 10/26/17 10/27/17 06:59 06:59 06:59 Intake Total 350 350 Balance 350 350 Result Diagrams: 10/26/17 07:35 10/26/17 07:35 Additional Labs: Laboratory Tests 10/15/17 10/15/17 10/25/17 10:21 10:21 17:15 Hgb 7.2 L Creatinine 2.10 H 1.92 H Iron TIBC Ferritin 10/25/17 10/25/17 10/25/17 17:15 17:15 17:15 Hgb 7.2 L Creatinine Iron 11 L TIBC 435 Ferritin 10/25/17 20:49 Hgb Creatinine Iron TIBC Ferritin 7.29 L Phys Exam - Physical Examination Constitutional: NAD alert, responsive HEENT: PERRLA, moist MMs, sclera anicteric, oral pharynx no lesions Neck: no nodes, no JVD, supple Respiratory: no wheezing, no rales, no rhonchi, clear to auscultation bilateral Cardiovascular: no significant murmur, no rub, gallop, irregular Gastrointestinal: soft, non-tender, no distention, positive bowel sounds Musculoskeletal: no edema, pulses present Neurological: non-focal, normal sensation, moves all 4 limbs Psychiatric: normal affect, A&O x 3 Skin: no rash, normal turgor, cap refill <2 seconds Dx/Plan (1) GI bleed Code(s): K92.2 - GASTROINTESTINAL HEMORRHAGE, UNSPECIFIED Status: Acute Comment: Suspected lower tract source, s/p 2u PRBC's, EGD/colonoscopy today, appreciate GI assistance, serial CBC, hold anticoagulation and NSAIDs (2) Acute blood loss anemia Code(s): D62 - ACUTE POSTHEMORRHAGIC ANEMIA Status: Acute Comment: s/p 2u PRBC's, see #1 above (3) PHUONG (acute kidney injury) Code(s): N17.9 - ACUTE KIDNEY FAILURE, UNSPECIFIED Status: Acute Comment: Avoid nephrotoxic meds and contrast media, serial creatinine (4) Iron deficiency anemia Code(s): D50.9 - IRON DEFICIENCY ANEMIA, UNSPECIFIED Status: Chronic Comment : FeSO4 for alf replacement (5) HTN (hypertension) Code(s): I10 - ESSENTIAL (PRIMARY) HYPERTENSION Status: Chronic Qualifiers: Hypertension type: essential hypertension Qualified Code(s): I10 - Essential (primary) hypertension Comment: Resume Metoprolol, serial monitoring and titrate to clinical response - Plan plan discussed w/ family, out of bed/ambulate, DVT proph w/SCDs Stable overall -: Avoid anticoagulation, NSAIDs -: EGD/colonoscopy today -: Continue Protonix 40mg IV q12h -: AM lab: BMP, CBC * .
[2017-10-26] MEDS ORDERED: Lidocaine 1% PF 5 ML VIAL ONE (16:50)
[2017-10-26] MEDS ORDERED: PROPOFOL 200 MG/20 ML VIAL ONE (16:50)
[2017-10-26] MEDS: Atorvastatin Calcium 20 MG TAB PO SCH (21:12)
[2017-10-26] MEDS: Latanoprost 0.005% Ophth Soln 2.5 ml Bottle EA EYE SCH (21:16)
[2017-10-27 04:34] LABS: Band 2 % (5-11); Eosinophils 2 % (0-10); Hemoglobin 7.5 g/dL (14.0-18.0); Lymphocytes 28 % (21-51); MDiff Complete? YES; Mean Corpuscular HGB CONC 32.1 g/dL (32.0-36.0); Mean Corpuscular Volume 74.8 fl (80.0-94.0); Mean Platelet Volume 7.9 fL (7.4-10.4); Monocytes 7 % (0-10); Neutrophil 61 % (42-75); Platelet Count 162 thou/uL (130-400); Red Blood Cell (RBC) Count 3.14 mill/uL (4.70-6.10); White Blood Cell (WBC) Count 5.5 thou/uL (4.8-10.8)
[2017-10-27 04:35] LABS: Anion Gap 10 mmol/L (10-20); BUN (Urea Nitrogen) 20 mg/dL (8.4-25.7); Calc. Creatinine Clearance 51 mL/min (70-130); Calcium 8.9 mg/dL (7.8-10.44); Carbon Dioxide 27 mmol/L (23-31); Chloride 107 mmol/L (98-107); Estimated GFR-MDRD 44; Glucose 91 mg/dL (83-110); Potassium 3.9 mmol/L (3.5-5.1); Sodium 140 mmol/L (136-145)
[2017-10-27] MEDS: Brimonidine Tartrate 0.2% Ophth Soln 5 ml Bottle R EYE SCH (08:33)
[2017-10-27] MEDS: Timolol 0.5% Ophth Soln 5 ml Bottle R EYE SCH (08:35)
[2017-10-27] MEDS: Pantoprazole 40 MG VIAL IVP SCH (08:36)
[2017-10-27] MEDS: Tamsulosin HCl 0.4 MG CAP PO SCH (08:36)
[2017-10-27] MEDS: Finasteride 5 MG TAB PO SCH (08:36)
[2017-10-27 14:17] VITALS: BP 116/54; TEMP 97.6
[2017-10-27 14:47] LABS: Hemoglobin 8.7 g/dL (14.0-18.0); Platelet Count 187 thou/uL (130-400)
--- NOTE | 2017-10-27 15:24 | PRG ---
DATE OF SERVICE: 10/27/2017 SUBJECTIVE: The patient is feeling well today. He is having no melena, hematochezia. He is tolerat ing a diet. OBJECTIVE: VITAL SIGNS: Temperature 97.6, pulse 69, respiratory rate 14, and blood pressure 116/54. CHEST: Clear. CARDIOVASCULAR: Regular rate and rhythm. ABDOMEN: Soft, nontender, no organomegaly or masses are noted. LABORATORY DATA: Shows hemoglobin 7.5, hematocrit 23.5 with MCV of 74.8. BMP is essentially normal except for creatinine 1.51. Pathology is pending. There is no operative notes on the chart, but acc ording to Dr. Weber, he found some erosive changes in the area of the anastomosis and one small poly p. This was removed. Esophageal biopsies were performed as mentioned earlier, they are pending. ASSESSMENT: 1. Iron deficiency anemia. 2. Previously on Eliquis for a single episode of atrial fibrillation. 3. History of colon resection. RECOMMENDATIONS: 1. Continue iron replacement therapy as an outpatient. 2. Await histopathology. 3. Follow up with Dr. Shaw or us in 2 to 3 weeks to follow hemoglobin and hematocrit. 4. Recheck hemoglobin today. If still low, he may require 1 unit packed RBCs.
--- NOTE | 2017-10-27 23:15 | DIS ---
DATE OF ADMISSION: 10/25/2017 DATE OF DISCHARGE: 10/27/2017 DISCHARGE DIAGNOSES: 1. Gastrointestinal bleed, likely secondarily to esophagitis and gastric ulcer with nonsteroidal ant i-inflammatory use. 2. Acute blood loss anemia, status post 2 units of packed red blood cells, stable. 3. Acute kidney injury on chronic kidney disease, stage 2, stable. 4. Iron deficiency anemia. 5. Hypertension, stable. 6. History of atrial fibrillation, current rate control. No anticoagulation due to gastrointestinal bleed and gastric ulceration. CONSULTATIONS: Dr. Milian and Dr. Weber with GI Service. PERTINENT LAB AND X-RAY FINDINGS: Creatinine ranged between 1.51-1.92 with estimated GFR ranging bet ween 34-44. Serum iron level 11, TIBC 435, ferritin 7.29. LFTs within normal limits. CBC showed a hemoglobin ranging between 7.2-8.7, MCV 75. HOSPITAL COURSE: The patient was admitted to the medical floor after initially presenting with dizzi ness and hemoglobin level of 7. The patient was placed on IV fluids and typed and crossed for 2 unit s of packed red blood cells, undergoing transfusion without complication. The patient was placed on IV Protonix and evaluated by the GI Service. The patient underwent EGD and colonoscopy with EGD show ing gastric ulceration as well as esophagitis with recommendations for ongoing proton pump inhibitor use. The patient also underwent colonoscopy showing evidence of a prior anastomosis with some friabi lity without active bleeding. Serial H&H monitoring showed overall stable values and patient require d no further transfusions during the hospital course. The patient was treated for mild acute kidney injury, likely secondary to volume depletion from the acute GI bleed. Modification to chronic medica tion regimen and avoidance of nephrotoxic agents showed overall improving creatinine by the time of d ischarge. The patient overall remained clinically stable through the hospital course, tolerating reg ular oral intake, ambulating without assistance or difficulty and remaining clinically stable. I exa mined the patient and discussed laboratory and x-ray findings with the patient and his spouse at the time of discharge as they verbalized understanding and agreement for the plan of discharge. Overall, the patient clinically stable and ready for discharge on 10/27/2017. DISCHARGE MEDICATIONS: 1. Ferrous sulfate 325 mg 1 tab p.o. b.i.d. 2. Vitamin C 500 mg 1 tab p.o. daily. 3. Enteric coated aspirin 81 mg 1 tab p.o. daily. 4. Brimonidine/timolol 1 drop to the right eye b.i.d. 5. Nexium 40 mg p.o. daily. 6. Proscar 5 mg p.o. q.a.m. 7. Meloxicam 7.5 mg p.o. q.a.m. 8. Lopressor 50 mg p.o. q.a.m. 9. Moduretic tab p.o. q.a.m. 10. Multivitamin 1 tab p.o. daily. 11. Simvastatin 40 mg p.o. at bedtime. 12. Flomax 0.4 mg p.o. q.a.m. 13. Travatan 1 drop to each eye at bedtime. FOLLOWUP: The patient will follow up with Dr. German Shaw within 7 days of discharge. The patient w ill follow up with Dr. Willie Jack with GI Service and to call his office for appointment time and destiny e. The patient will follow up with Dr. Cyril Kinsey with [facility] and t o call his office for appointment time and date. CONDITION ON DISCHARGE: Stable. ACTIVITY: Ad bryan. DIET: Heart healthy. CODE STATUS: FULL. DISPOSITION: Home on 10/27/2017. Total time preparing and coordinating discharge is 34 minutes.
--- NOTE | 2017-10-28 11:28 | OP ---
DATE OF PROCEDURE: SURGEON: Louie Weber M.D. PROCEDURE: 1. Esophagogastroduodenoscopy. 2. Colonoscopy. PREOPERATIVE DIAGNOSES: 1. Prior history of colovesicular fistula with extensive resection. 2. Anticoagulation for atrial fibrillation. 3. Nonsteroidal anti-inflammatory drug use. POSTOPERATIVE DIAGNOSES: 1. Esophagogastroduodenoscopy revealed a small esophageal erosion distally which was biopsied. The stomach and duodenum were otherwise normal. No bleeding sites identified. 2. The colon was notable for anastomosis, sigmoid colon, no bleeding sites identified. PROCEDURE IN DETAIL: After the patient was informed of the risks, benefits, possible complications o f endoscopy including perforation, reactions to medication and aspiration, informed consent was obtai merlin. The patient was brought to the endoscopy suite where he was sedated in gradual fashion. I expl ained to the patient he was having endoscopy secondary to his recurrent anemia, questionable melena. The patient was sedated. The endoscope was advanced through the bite block and into the esophagus, stomach and the second and third portion of the duodenum and slowly removed. There were small erosio ns in the distal esophagus, which were biopsied. There was no evidence of abnormalities in the stoma ch or duodenum. On forward and retroflexed views in the stomach were normal. The scope was removed. The patient was turned in the room and a rectal exam was performed. The endoscope was advanced in th e anal canal to the colon to the cecum was identified by the ileocecal and appendiceal orifice. Ther e was anastomosis in the lower sigmoid colon which was normal with no bleeding sites identified. The re was some granulation tissue. The scope was retroflexed and returned to forward position and remov ed. The patient tolerated the procedure well with complications.
== END 2017-10-27 16:05 | disposition home or self-care (01) | DRG 391 ==
LOC: T4-A 15:07
PROVIDERS: ADMIT Internal Medicine; ATTEND Internal Medicine
PROC: 30233N1 Transfusion of Nonautologous Red Blood Cells into Peripheral Vein, Percutaneous Approach (ICD-10-PCS; 2017-10-25)
PROC: 0DB38ZX Excision of Lower Esophagus, Via Natural or Artificial Opening Endoscopic, Diagnostic (ICD-10-PCS; principal; 2017-10-26)
PROC: 0DJD8ZZ Inspection of Lower Intestinal Tract, Via Natural or Artificial Opening Endoscopic (ICD-10-PCS; 2017-10-26)
DX: K22.8 Other specified diseases of esophagus (principal); K25.4 Chronic or unspecified gastric ulcer with hemorrhage; N17.9 Acute kidney failure, unspecified; D62 Acute posthemorrhagic anemia; K20.9 Esophagitis, unspecified; I48.0 Paroxysmal atrial fibrillation; I12.9 Hypertensive chronic kidney disease with stage 1 through stage 4 chronic kidney disease, or unspecified chronic kidney disease; N18.2 Chronic kidney disease, stage 2 (mild); T39.395A Adverse effect of other nonsteroidal anti-inflammatory drugs [NSAID], initial encounter; Z85.46 Personal history of malignant neoplasm of prostate; Z79.01 Long term (current) use of anticoagulants; Z88.1 Allergy status to other antibiotic agents; Z90.49 Acquired absence of other specified parts of digestive tract; Z79.899 Other long term (current) drug therapy
CPT/HCPCS: 36415; 36430; 80048; 80053; 82728; 83540; 83550; 85007; 85025; 85027; 86850; 86900; 86901; 88305; 88312; 88313; C9113; J2001; J2704; P9016

== ENCOUNTER 2017-12-08 14:58 | Outpatient (CLI) | payer MEDICARE ==
--- NOTE | 2017-12-08 16:47 | MRI ---
MRI OF LUMBAR SPINE WITHOUT CONTRAST: 12/08/17 HISTORY: Lumbar stenosis. COMPARISON: None. TECHNIQUE: MRI lumbar spine is performed without intravenous gadolinium administration. Multisequential, multipl yisel imaging is performed. FINDINGS: Appropriate T1 marrow signal intensity of the lumbar vertebrae. Vertebral body height is maintained. There is no fracture. No significant STIR hyperintensity to suggest vertebral body edema or ligamento us injury from T12 to the sacrum. Questionable STIR hyperintensity at T11, incompletely evaluated. Symmetric signal intensity of the psoas muscles. Appropriate signal intensity of the visualized solid organs. Conus medullaris terminates at the superior aspect of the L1. T12-L1: Desiccation with moderate loss of disc space height. 3.3 mm anterolisthesis of T12 upon L1. T here is overall mild central canal stenosis. Moderate bilateral foraminal narrowing. L1-L2: Desiccation with moderate loss of disc space height. Generalized disc bulge, ligamentum flavum thickening and facet hypertrophy results in moderate central canal stenosis. Mild right and moderate left foraminal narrowing. L2-L3: There appears to be near complete fusion of the disc space. There is a broad based osteophyte complex with a left lateral component. There is no significant central canal stenosis. Mild right and moderate left foraminal narrowing. L3-L4: Desiccation with severe loss of disc space height. Generalized disc bulge, ligamentum flavum t hickening and facet hypertrophy results in mild central canal stenosis. There is narrowing of the lef t subarticular zone with partial obscuration traversing left L3 nerve root. Mild right and moderate left foraminal narrowing. L4-L5: Desiccation with moderate loss of disc space height. Generalized disc bugle with a central and left subarticular disc protrusion. Mild central canal stenosis. Narrowing of the left subarticular z one results in partial obscuration of the traversing left L5 nerve root. Mild bilateral foraminal ai rowing. L5-S1: There is severe loss of disc space height. There is central disc protrusion with left and righ t subarticular components. Partial obscuration of bilateral traversing S1 nerve roots. Overall modera te central canal stenosis. Moderate right and moderate to severe left foraminal narrowing. IMPRESSION: 1. Extensive degenerative changes in the lumbar spine as detailed above. There is significant ce ntral canal stenosis and foraminal narrowing as detailed above. 2. Questionable compression deformity at T11, incompletely evaluated. Dedicated thoracic spine i maging if clinically warranted. POS: NATE
== END 2017-12-08 14:59 | disposition home or self-care (01) ==
LOC: TBSIIMAG 14:58
PROVIDERS: ATTEND Neurological Surgery
DX: M48.061 Spinal stenosis, lumbar region without neurogenic claudication (principal); M99.83 Other biomechanical lesions of lumbar region; M43.15 Spondylolisthesis, thoracolumbar region; M48.07 Spinal stenosis, lumbosacral region; M48.05 Spinal stenosis, thoracolumbar region; M99.82 Other biomechanical lesions of thoracic region; M47.896 Other spondylosis, lumbar region; M51.86 Other intervertebral disc disorders, lumbar region
CPT/HCPCS: 72148

== ENCOUNTER 2019-09-07 05:59 | Day surgery (SDC) | payer MEDICARE ==
[2019-09-06 14:17] VITALS: BMI 2196.9
--- NOTE | 2019-09-07 09:14 | OP ---
DATE OF PROCEDURE: 09/07/2019 PROCEDURES PERFORMED: Esophagogastroduodenoscopy with biopsy and push enteroscopy and colonoscopy with control of hemorrhage. PREOPERATIVE DIAGNOSIS: Iron deficiency anemia. DESCRIPTION OF PROCEDURE: Informed consent was obtained from the patient. He was sedated with total intravenous anesthesia. The colonoscope was advanced to the proximal jejunum without difficulty. The proximal jejunal mucosa was normal. The duodenal mucosa was normal throughout. Biopsies were taken from the second portion of the duodenum to rule out celiac disease. The pylorus was normal. The stomach was normal including retroflexed views. The GE junction and esophagus were normal. The patient was turned around. Rectal exam was performed and was normal. The colonoscope was advanced to the terminal ileum without difficulty. The mucosa of the terminal ileum was normal. The preparation quality was good. The ileocecal valve and appendiceal orifice were clearly identified. There was a prior sigmoid colon resection with anastomosis at 20 cm. There were 2 polyps at the anastomosis, appeared to be consistent with granulation tissue and one of these was friable and oozed blood. I removed both these with snare cautery polypectomy with just destruction of the polyp with the cautery with no tissue retrieved. The friable bleeding site was cauterized with a 10-Arabic Gold Probe at 18 grossman with good hemostasis confirmed. Retroflexed views in the rectum were normal. The remainder of the colonic mucosa was normal. IMPRESSION: 1. Normal esophagogastroduodenoscopy with push enteroscopy to the proximal jejunum. Duodenal biopsies were obtained to rule out celiac disease for evaluation of iron deficiency anemia. 2. Status post sigmoid colon resection with friable bleeding granulation tissue at the anastomosis. This was removed by snare cautery polypectomy, and bleeding was controlled with a Gold Probe cautery. 3. Otherwise, normal colonoscopy to the terminal ileum. RECOMMENDATIONS: 1. Await histopathology. 2. Follow up in GI Clinic. If the iron deficiency anemia persists despite treatment of the granulation tissue and bleeding, then next step would be capsule endoscopy of the small bowel. Job ID: [id number]
[2019-09-07] MEDS ORDERED: PROPOFOL 200 MG/20 ML VIAL ONE (11:21)
[2019-09-07] MEDS ORDERED: Lidocaine 1% PF 5 ML VIAL ONE (11:21)
== END 2019-09-07 09:58 | disposition home or self-care (01) ==
LOC: SDC 05:59
PROVIDERS: ATTEND Internal Medicine Gastroenterology
PROC: 0W3P8ZZ Control Bleeding in Gastrointestinal Tract, Via Natural or Artificial Opening Endoscopic (ICD-10-PCS; principal; 2019-09-07)
PROC: 0DB58ZZ Excision of Esophagus, Via Natural or Artificial Opening Endoscopic (ICD-10-PCS; 2019-09-07)
PROC: 0DBA8ZX Excision of Jejunum, Via Natural or Artificial Opening Endoscopic, Diagnostic (ICD-10-PCS; 2019-09-07)
PROC: 0DBN8ZZ Excision of Sigmoid Colon, Via Natural or Artificial Opening Endoscopic (ICD-10-PCS; 2019-09-07)
DX: D50.9 Iron deficiency anemia, unspecified (principal); K63.5 Polyp of colon; Z79.82 Long term (current) use of aspirin; Z79.899 Other long term (current) drug therapy; Z88.1 Allergy status to other antibiotic agents
CPT/HCPCS: 88305; J2001; J2704

== ENCOUNTER 2022-11-15 10:34 | Inpatient (IN) | payer MEDICARE, SELFPAY ==
[2022-11-15 11:29] LABS: Hemoglobin 13.2 g/dL (14.0-18.0); Mean Corpuscular HGB CONC 29.8 g/dL (32.0-36.0); Mean Corpuscular Volume 93.8 fl (78.0-98.0); Mean Platelet Volume 8.4 fL (7.4-10.4); Platelet Count 150 10x3/uL (130-400); RBC Distribution Width 16.7 % (11.5-14.5); Red Blood Cell (RBC) Count 4.72 mill/uL (4.70-6.10); White Blood Cell (WBC) Count 7.9 10x3/uL (4.8-10.8)
[2022-11-15 11:53] LABS: #Lymphocytes 0.9 thou/uL (1.20-3.40); #Monocytes 0.6 thou/uL (0.11-0.59); #Neutrophils 6.3 thou/uL (1.40-6.50); %Basophils 0.1 % (0.0-1.0); %Eosinophils 0.6 % (0.0-10.0); %Lymphocytes 11.3 % (21.0-51.0); %Monocytes 7.9 % (0.0-10.0); %Neutrophils 80.1 % (42.0-75.0); Hypochromia SLIGHT = 6-15 cells (100X) (0-5/hpf); MDiff Complete? YES; Platelet Morphology Comment Appears Adequate
[2022-11-15 12:02] LABS: Actual Bicarbonate (HCO3v) 25.4 mEq/L (22-28); Base Excess -0.6 mEq/L (-2.0 to +3.0); Calcium, Ionized (venous) 1.18 mmol/L (1.16-1.32); Chloride (VBG) 110 mmol/L (98-106); Hematocrit-VBG 41 % (42.0-52.0); Potassium (VBG) 4.04 mmol/L (3.70-5.30); pH (venous) 7.352 (7.32-7.43)
[2022-11-15 12:03] LABS: Sodium 151.5 mmol/L (133-146)
[2022-11-15 12:11] LABS: CKMB 4.9 ng/mL (0-6.6)
[2022-11-15] MEDS ORDERED: metroNIDAZOLE 500 MG/100 ML BAG ONE (12:25)
[2022-11-15] MEDS ORDERED: VANCOMYCIN 2 GRAM/500 ML BAG 2 GM in Premix Bag 1 BAG IVPB SCH (12:30)
[2022-11-15 12:40] LABS: ALT (SGPT) 19 U/L (8-55); AST (SGOT) 56 U/L (5-34); Albumin 2.9 g/dL (3.4-4.8); Alkaline Phosphatase 151 U/L (40-110); Anion Gap 17 mmol/L (10-20); BUN (Urea Nitrogen) 64 mg/dL (8.4-25.7); Bilirubin, Total 1.5 mg/dL (0.2-1.2); Calc. Creatinine Clearance 0 mL/min (70-130); Calcium 9.1 mg/dL (7.8-10.44); Carbon Dioxide 23 mmol/L (23-31); Chloride 113 mmol/L (98-107); Estimated GFR 21; Globulin 2.4 g/dL (2.4-3.5); Glucose 84 mg/dL (83-110); Potassium 4.3 mmol/L (3.5-5.1); Protein, Total 5.3 g/dL (5.8-8.1); Sodium 149 mmol/L (136-145)
[2022-11-15] MEDS ORDERED: Ondansetron PF 4 MG/2 ML Vial IVP PRN (13:56)
[2022-11-15] MEDS ORDERED: Acetaminophen 650 MG Suppository PR PRN (13:56)
[2022-11-15 14:33] LABS: Bacteria/HPF 4+ HPF (None Seen); Bilirubin Negative (Negative); Blood, Urine 3+ (Negative); Clarity Extra Turbid (Clear); Glucose, Urine (Dipstick) Normal (Negative); Ketone, Urine Trace mg/dL (Negative); Leukocyte 500 Leu/uL (Negative); Nitrite Negative (Negative); Protein, Urine (Dipstick) 200 mg/dL (Neg-Trace); RBC/HPF Greater than 50 HPF (0-3); Specific Gravity, Urine 1.012 (1.002-1.036); Squamous Epithelial None Seen HPF (0-3); Urobilinogen Normal mg/dL (Less than 2); WBC/HPF Greater than 50 HPF (0-3); pH, Urine 6.5 (5.0-9.0)
[2022-11-15 16:15] VITALS: BMI 25.1
[2022-11-15] MEDS ORDERED: Vancomycin Dose by Levels Sliding Scale (Wt 71-99) FS SCH (17:15)
[2022-11-15] MEDS: Sodium Chloride 0.45% 1,000 ML IV SCH (17:29)
[2022-11-15] MEDS: Ipratropium/Albuterol 3 ML NEB EZPAP SCH ×3 (17:33→23:38)
[2022-11-15] MEDS: Timolol 0.5% Ophth Soln 5 ml Bottle R EYE SCH (21:53)
[2022-11-15] MEDS: Brimonidine Tartrate 0.2% Ophth Soln 5 ml Bottle R EYE SCH (21:54)
[2022-11-15] MEDS: Latanoprost 0.005% Ophth Soln 2.5 ml Bottle EA EYE SCH (21:54)
[2022-11-16] MEDS: Sodium Chloride 0.45% 1,000 ML IV SCH ×3 (02:50→22:13)
[2022-11-16] MEDS: Ipratropium/Albuterol 3 ML NEB EZPAP SCH ×6 (03:01→23:00)
[2022-11-16 04:37] LABS: #Eosinphils 0.1 thou/uL (0.0-0.7); #Lymphocytes 0.5 thou/uL (1.20-3.40); #Monocytes 0.4 thou/uL (0.11-0.59); %Basophils 0.3 % (0.0-1.0); %Eosinophils 1.3 % (0.0-10.0); %Lymphocytes 7.7 % (21.0-51.0); %Monocytes 6.8 % (0.0-10.0); %Neutrophils 83.9 % (42.0-75.0); Mean Corpuscular HGB CONC 29.9 g/dL (32.0-36.0); Mean Corpuscular Hemoglobin 28.4 pg (27.0-31.0); Mean Corpuscular Volume 95.1 fl (78.0-98.0); Mean Platelet Volume 8.5 fL (7.4-10.4); Platelet Count 129 10x3/uL (130-400); RBC Distribution Width 16.2 % (11.5-14.5); Red Blood Cell (RBC) Count 4.21 mill/uL (4.70-6.10)
[2022-11-16 04:51] LABS: Anion Gap 13 mmol/L (10-20); BUN (Urea Nitrogen) 59 mg/dL (8.4-25.7); Calc. Creatinine Clearance 26 mL/min (70-130); Calcium 8.7 mg/dL (7.8-10.44); Carbon Dioxide 22 mmol/L (23-31); Chloride 116 mmol/L (98-107); Estimated GFR 27; Glucose 67 mg/dL (83-110); Potassium 4.1 mmol/L (3.5-5.1); Sodium 147 mmol/L (136-145)
[2022-11-16] MEDS: Timolol 0.5% Ophth Soln 5 ml Bottle R EYE SCH ×2 (08:20→20:36)
[2022-11-16] MEDS: Brimonidine Tartrate 0.2% Ophth Soln 5 ml Bottle R EYE SCH ×2 (08:20→20:37)
[2022-11-16 13:32] LABS: Vancomycin, Random 11.9 ug/mL (See Comment)
[2022-11-16] MEDS: Ampicillin/Sulbactam 1.5 GM in Sodium Chloride 0.9% 100 ML IVPB SCH (13:43)
[2022-11-16] MEDS ORDERED: Vancomycin HCl 750 MG in Sodium Chloride 0.9% 250 ML 250 ML IVPB SCH (14:00)
[2022-11-16] MEDS: Latanoprost 0.005% Ophth Soln 2.5 ml Bottle EA EYE SCH (20:37)
[2022-11-16] MEDS ORDERED: Dextrose 5% in Water 1,000 ML IV PRN (21:01)
[2022-11-16] MEDS ORDERED: Dextrose 50% Abboject 50 ML SYRINGE SLOW IVP PRN (21:01)
[2022-11-17] MEDS: Ampicillin/Sulbactam 1.5 GM in Sodium Chloride 0.9% 100 ML IVPB SCH ×2 (02:07→13:02)
[2022-11-17] MEDS: Ipratropium/Albuterol 3 ML NEB EZPAP SCH ×6 (02:57→23:55)
[2022-11-17 04:31] LABS: #Eosinphils 0.1 thou/uL (0.0-0.7); #Monocytes 0.5 thou/uL (0.11-0.59); #Neutrophils 6.4 thou/uL (1.40-6.50); %Basophils 0.1 % (0.0-1.0); %Eosinophils 0.7 % (0.0-10.0); %Lymphocytes 7.7 % (21.0-51.0); %Monocytes 6.6 % (0.0-10.0); %Neutrophils 84.8 % (42.0-75.0); Hemoglobin 12.9 g/dL (14.0-18.0); Mean Corpuscular HGB CONC 29.5 g/dL (32.0-36.0); Mean Corpuscular Hemoglobin 27.3 pg (27.0-31.0); Mean Corpuscular Volume 92.6 fl (78.0-98.0); Platelet Count 147 10x3/uL (130-400); RBC Distribution Width 18.2 % (11.5-14.5); Red Blood Cell (RBC) Count 4.72 mill/uL (4.70-6.10); White Blood Cell (WBC) Count 7.5 10x3/uL (4.8-10.8)
[2022-11-17 04:55] LABS: Anion Gap 14 mmol/L (10-20); BUN (Urea Nitrogen) 60 mg/dL (8.4-25.7); Calc. Creatinine Clearance 26 mL/min (70-130); Calcium 8.9 mg/dL (7.8-10.44); Carbon Dioxide 21 mmol/L (23-31); Chloride 114 mmol/L (98-107); Estimated GFR 28; Glucose 55 mg/dL (83-110); Potassium 4.2 mmol/L (3.5-5.1); Sodium 145 mmol/L (136-145)
[2022-11-17] MEDS: Sodium Chloride 0.45% 1,000 ML IV SCH ×2 (06:16→15:20)
[2022-11-17] MEDS: Brimonidine Tartrate 0.2% Ophth Soln 5 ml Bottle R EYE SCH ×2 (08:02→20:51)
[2022-11-17] MEDS: Timolol 0.5% Ophth Soln 5 ml Bottle R EYE SCH ×2 (08:03→20:50)
[2022-11-17 13:18] LABS: Vancomycin, Random 13.2 ug/mL (See Comment)
[2022-11-17] MEDS ORDERED: Vancomycin HCl 750 MG in Sodium Chloride 0.9% 250 ML 250 ML IVPB SCH (14:00)
[2022-11-17] MEDS: Latanoprost 0.005% Ophth Soln 2.5 ml Bottle EA EYE SCH (20:50)
[2022-11-18] MEDS: Ampicillin/Sulbactam 1.5 GM in Sodium Chloride 0.9% 100 ML IVPB SCH ×2 (02:33→12:15)
[2022-11-18] MEDS: Ipratropium/Albuterol 3 ML NEB EZPAP SCH ×6 (03:45→22:24)
[2022-11-18] MEDS: Sodium Chloride 0.45% 1,000 ML IV SCH ×3 (04:12→16:55)
[2022-11-18 07:27] LABS: #Eosinphils 0.1 thou/uL (0.0-0.7); #Monocytes 0.6 thou/uL (0.11-0.59); #Neutrophils 5.8 thou/uL (1.40-6.50); %Basophils 0.1 % (0.0-1.0); %Monocytes 7.9 % (0.0-10.0); %Neutrophils 80.6 % (42.0-75.0); Hemoglobin 12.2 g/dL (14.0-18.0); Mean Corpuscular Hemoglobin 27.2 pg (27.0-31.0); Mean Corpuscular Volume 90.6 fl (78.0-98.0); Mean Platelet Volume 9.9 fL (7.4-10.4); Platelet Count 151 10x3/uL (130-400); RBC Distribution Width 17.7 % (11.5-14.5); Red Blood Cell (RBC) Count 4.49 mill/uL (4.70-6.10); White Blood Cell (WBC) Count 7.2 10x3/uL (4.8-10.8)
[2022-11-18 07:39] LABS: Anion Gap 13 mmol/L (10-20); BUN (Urea Nitrogen) 54 mg/dL (8.4-25.7); Calc. Creatinine Clearance 28 mL/min (70-130); Carbon Dioxide 22 mmol/L (23-31); Chloride 110 mmol/L (98-107); Estimated GFR 29; Glucose 85 mg/dL (83-110); Potassium 3.8 mmol/L (3.5-5.1); Sodium 141 mmol/L (136-145)
[2022-11-18] MEDS: Brimonidine Tartrate 0.2% Ophth Soln 5 ml Bottle R EYE SCH ×2 (08:41→20:06)
[2022-11-18] MEDS: Timolol 0.5% Ophth Soln 5 ml Bottle R EYE SCH ×2 (08:41→20:05)
[2022-11-18] MEDS: Latanoprost 0.005% Ophth Soln 2.5 ml Bottle EA EYE SCH (20:05)
[2022-11-19] MEDS: Ampicillin/Sulbactam 1.5 GM in Sodium Chloride 0.9% 100 ML IVPB SCH ×2 (01:07→14:37)
[2022-11-19] MEDS: Ipratropium/Albuterol 3 ML NEB EZPAP SCH ×6 (02:29→23:10)
[2022-11-19 06:02] LABS: #Eosinphils 0.1 thou/uL (0.0-0.7); #Monocytes 0.6 thou/uL (0.11-0.59); #Neutrophils 5.7 thou/uL (1.40-6.50); %Basophils 0.1 % (0.0-1.0); %Eosinophils 1.4 % (0.0-10.0); %Lymphocytes 10.3 % (21.0-51.0); %Monocytes 8.1 % (0.0-10.0); %Neutrophils 79.8 % (42.0-75.0); Hemoglobin 11.7 g/dL (14.0-18.0); Mean Corpuscular HGB CONC 28.8 g/dL (32.0-36.0); Mean Corpuscular Hemoglobin 26.5 pg (27.0-31.0); Mean Corpuscular Volume 92.1 fl (78.0-98.0); Mean Platelet Volume 10.2 fL (7.4-10.4); Platelet Count 150 10x3/uL (130-400); RBC Distribution Width 17.6 % (11.5-14.5); Red Blood Cell (RBC) Count 4.41 mill/uL (4.70-6.10); White Blood Cell (WBC) Count 7.2 10x3/uL (4.8-10.8)
[2022-11-19 06:27] LABS: Anion Gap 14 mmol/L (10-20); BUN (Urea Nitrogen) 50 mg/dL (8.4-25.7); Calc. Creatinine Clearance 28 mL/min (70-130); Carbon Dioxide 20 mmol/L (23-31); Chloride 111 mmol/L (98-107); Sodium 141 mmol/L (136-145)
[2022-11-19 06:28] LABS: Calcium 8.6 mg/dL (7.8-10.44); Estimated GFR 29; Glucose 83 mg/dL (83-110)
[2022-11-19 07:22] LABS: Burr Cells SLIGHT = 2-5 cells HPF (0-1); CellaVision Operator ID LAB.GE; Platelet Morphology Comment Platelets Normal; Poikilocytosis SLIGHT = 6-15 cells HPF (0-5); Polychromasia SLIGHT = 2-3 cells HPF (0-2); RBC Morphology Within Normal Limits
[2022-11-19] MEDS: Brimonidine Tartrate 0.2% Ophth Soln 5 ml Bottle R EYE SCH ×2 (08:41→21:33)
[2022-11-19] MEDS: Timolol 0.5% Ophth Soln 5 ml Bottle R EYE SCH ×2 (08:42→21:35)
[2022-11-19] MEDS ORDERED: Sodium Chloride 0.9% 1,000 ML IV SCH (11:00)
[2022-11-19 15:07] LABS: Specific Gravity, Urine 1.025 (1.005-1.030)
[2022-11-19 15:10] LABS: Bilirubin Unable to Interpret (Negative); Blood, Urine Unable to Interpret (Negative); Clarity Hazy (Clear); Glucose, Urine (Dipstick) Unable to Interpret mg/dL (Negative); Ketone, Urine Unable to Interpret mg/dL (Negative); Leukocyte Unable to Interpret (Negative); Nitrite Unable to Interpret (Negative); Protein, Urine (Dipstick) Unable to Interpret mg/dL (Neg-Trace); Urobilinogen UNABLE TO INTERPRET mg/dL (Less than 2)
[2022-11-19 15:11] LABS: Bacteria/HPF 1+ HPF (None Seen); CAUTI Indications for Culture Acute Hematuria; RBC/HPF Greater than 50 HPF (0-3); Squamous Epithelial 0-3 HPF (0-3)
[2022-11-19 15:12] LABS: Urine Culture Reflex Yes Yes
[2022-11-19] MEDS: Latanoprost 0.005% Ophth Soln 2.5 ml Bottle EA EYE SCH (21:33)
[2022-11-20] MEDS: Ipratropium/Albuterol 3 ML NEB EZPAP SCH ×6 (03:47→23:32)
[2022-11-20] MEDS: Ampicillin/Sulbactam 1.5 GM in Sodium Chloride 0.9% 100 ML IVPB SCH ×2 (05:21→17:40)
[2022-11-20 06:20] LABS: #Eosinphils 0.1 thou/uL (0.0-0.7); #Monocytes 0.5 thou/uL (0.11-0.59); #Neutrophils 6.2 thou/uL (1.40-6.50); %Basophils 0.3 % (0.0-1.0); %Eosinophils 1.2 % (0.0-10.0); %Lymphocytes 10.2 % (21.0-51.0); %Monocytes 6.9 % (0.0-10.0); %Neutrophils 80.9 % (42.0-75.0); Hemoglobin 12.4 g/dL (14.0-18.0); Mean Corpuscular Hemoglobin 27.4 pg (27.0-31.0); Mean Corpuscular Volume 91.6 fl (78.0-98.0); Mean Platelet Volume 10.9 fL (7.4-10.4); Platelet Count 161 10x3/uL (130-400); RBC Distribution Width 17.5 % (11.5-14.5); Red Blood Cell (RBC) Count 4.52 mill/uL (4.70-6.10); White Blood Cell (WBC) Count 7.7 10x3/uL (4.8-10.8)
[2022-11-20 08:21] LABS: Calcium 8.9 mg/dL (7.8-10.44); Chloride 112 mmol/L (98-107); Potassium 4.1 mmol/L (3.5-5.1); Sodium 142 mmol/L (136-145)
[2022-11-20 08:22] LABS: Glucose 69 mg/dL (83-110)
[2022-11-20 08:23] LABS: Anion Gap 16 mmol/L (10-20); Carbon Dioxide 18 mmol/L (23-31)
[2022-11-20 08:25] LABS: Calc. Creatinine Clearance 30 mL/min (70-130); Estimated GFR 32
[2022-11-20 08:26] LABS: BUN (Urea Nitrogen) 48 mg/dL (8.4-25.7)
[2022-11-20] MEDS: Timolol 0.5% Ophth Soln 5 ml Bottle R EYE SCH ×2 (08:41→20:21)
[2022-11-20] MEDS: Brimonidine Tartrate 0.2% Ophth Soln 5 ml Bottle R EYE SCH ×2 (08:41→20:22)
[2022-11-20] MEDS: Latanoprost 0.005% Ophth Soln 2.5 ml Bottle EA EYE SCH (20:22)
[2022-11-21] MEDS: Ipratropium/Albuterol 3 ML NEB EZPAP SCH ×3 (02:01→10:26)
[2022-11-21] MEDS: Ampicillin/Sulbactam 1.5 GM in Sodium Chloride 0.9% 100 ML IVPB SCH ×2 (05:34→17:33)
[2022-11-21 06:44] LABS: #Eosinphils 0.1 thou/uL (0.0-0.7); #Monocytes 0.4 thou/uL (0.11-0.59); #Neutrophils 4.9 thou/uL (1.40-6.50); %Basophils 0.2 % (0.0-1.0); %Eosinophils 1.8 % (0.0-10.0); %Lymphocytes 8.1 % (21.0-51.0); %Neutrophils 82.4 % (42.0-75.0); Hemoglobin 12.6 g/dL (14.0-18.0); Mean Corpuscular HGB CONC 29.7 g/dL (32.0-36.0); Mean Corpuscular Hemoglobin 27.5 pg (27.0-31.0); Mean Corpuscular Volume 92.6 fl (78.0-98.0); Mean Platelet Volume 10.4 fL (7.4-10.4); Platelet Count 137 10x3/uL (130-400); RBC Distribution Width 17.4 % (11.5-14.5); Red Blood Cell (RBC) Count 4.58 mill/uL (4.70-6.10)
[2022-11-21 07:50] LABS: Anion Gap 13 mmol/L (10-20); BUN (Urea Nitrogen) 42 mg/dL (8.4-25.7); Calc. Creatinine Clearance 31 mL/min (70-130); Calcium 8.9 mg/dL (7.8-10.44); Carbon Dioxide 22 mmol/L (23-31); Chloride 113 mmol/L (98-107); Estimated GFR 34; Glucose 81 mg/dL (83-110); Sodium 144 mmol/L (136-145)
[2022-11-21] MEDS: Brimonidine Tartrate 0.2% Ophth Soln 5 ml Bottle R EYE SCH ×2 (09:12→20:27)
[2022-11-21] MEDS: Timolol 0.5% Ophth Soln 5 ml Bottle R EYE SCH ×2 (09:12→20:26)
[2022-11-21] MEDS ORDERED: Ipratropium/Albuterol 3 ML NEB EZPAP PRN (10:43)
[2022-11-21] MEDS: Latanoprost 0.005% Ophth Soln 2.5 ml Bottle EA EYE SCH (20:26)
[2022-11-22] MEDS: Ampicillin/Sulbactam 1.5 GM in Sodium Chloride 0.9% 100 ML IVPB SCH ×2 (05:18→17:35)
[2022-11-22] MEDS: Brimonidine Tartrate 0.2% Ophth Soln 5 ml Bottle R EYE SCH ×2 (08:23→20:12)
[2022-11-22] MEDS: Timolol 0.5% Ophth Soln 5 ml Bottle R EYE SCH ×2 (08:24→20:12)
[2022-11-22] MEDS: Latanoprost 0.005% Ophth Soln 2.5 ml Bottle EA EYE SCH (20:12)
[2022-11-23] MEDS: Ampicillin/Sulbactam 1.5 GM in Sodium Chloride 0.9% 100 ML IVPB SCH ×2 (05:13→17:27)
[2022-11-23 07:00] LABS: #Eosinphils 0.1 thou/uL (0.0-0.7); #Monocytes 0.5 thou/uL (0.11-0.59); #Neutrophils 4.9 thou/uL (1.40-6.50); %Basophils 0.3 % (0.0-1.0); %Eosinophils 1.1 % (0.0-10.0); %Lymphocytes 13.7 % (21.0-51.0); %Monocytes 8.1 % (0.0-10.0); %Neutrophils 76.2 % (42.0-75.0); Hemoglobin 11.7 g/dL (14.0-18.0); Mean Corpuscular HGB CONC 29.2 g/dL (32.0-36.0); Mean Corpuscular Hemoglobin 26.6 pg (27.0-31.0); Mean Corpuscular Volume 91.1 fl (78.0-98.0); Mean Platelet Volume 10.8 fL (7.4-10.4); Platelet Count 152 10x3/uL (130-400); RBC Distribution Width 17.5 % (11.5-14.5); White Blood Cell (WBC) Count 6.4 10x3/uL (4.8-10.8)
[2022-11-23 07:25] LABS: ALT (SGPT) 22 U/L (8-55); AST (SGOT) 23 U/L (5-34); Albumin 2.5 g/dL (3.4-4.8); Alkaline Phosphatase 134 U/L (40-110); Anion Gap 9 mmol/L (10-20); BUN (Urea Nitrogen) 37 mg/dL (8.4-25.7); Bilirubin, Total 0.7 mg/dL (0.2-1.2); Calc. Creatinine Clearance 36 mL/min (70-130); Calcium 8.8 mg/dL (7.8-10.44); Carbon Dioxide 27 mmol/L (23-31); Chloride 112 mmol/L (98-107); Estimated GFR 39; Globulin 2.8 g/dL (2.4-3.5); Glucose 85 mg/dL (83-110); Protein, Total 5.3 g/dL (5.8-8.1); Sodium 144 mmol/L (136-145)
[2022-11-23] MEDS: Brimonidine Tartrate 0.2% Ophth Soln 5 ml Bottle R EYE SCH (07:57)
[2022-11-23] MEDS: Timolol 0.5% Ophth Soln 5 ml Bottle R EYE SCH (07:58)
[2022-11-23] MEDS ORDERED: Furosemide 40 MG/4 ML VIAL SLOW IVP SCH (10:00)
[2022-11-23 16:13] VITALS: BP 147/90; TEMP 97.2
== END 2022-11-23 18:47 | DRG 871 ==
LOC: ERS 10:34 → 2NO 13:56 → T4-B 11-18 13:33
PROVIDERS: ADMIT Internal Medicine Critical Care Medicine; ATTEND Internal Medicine
PROC: 3E03329 Introduction of Other Anti-infective into Peripheral Vein, Percutaneous Approach (ICD-10-PCS; principal; 2022-11-15)
PROC: 4A033R1 Measurement of Arterial Saturation, Peripheral, Percutaneous Approach (ICD-10-PCS; 2022-11-15)
PROC: 0T9B70Z Drainage of Bladder with Drainage Device, Via Natural or Artificial Opening (ICD-10-PCS; 2022-11-20)
DX: A41.9 Sepsis, unspecified organism (principal); G93.41 Metabolic encephalopathy; L89.153 Pressure ulcer of sacral region, stage 3; J69.0 Pneumonitis due to inhalation of food and vomit; J96.01 Acute respiratory failure with hypoxia; N17.9 Acute kidney failure, unspecified; E87.0 Hyperosmolality and hypernatremia; J90 Pleural effusion, not elsewhere classified; I13.0 Hypertensive heart and chronic kidney disease with heart failure and stage 1 through stage 4 chronic kidney disease, or unspecified chronic kidney disease; I50.22 Chronic systolic (congestive) heart failure; Z66 Do not resuscitate; Z51.5 Encounter for palliative care; E78.5 Hyperlipidemia, unspecified; C61 Malignant neoplasm of prostate; R65.20 Severe sepsis without septic shock; G20 Parkinson's disease; F02.80 Dementia in other diseases classified elsewhere, unspecified severity, without behavioral disturbance, psychotic disturbance, mood disturbance, and anxiety; R29.6 Repeated falls; E86.0 Dehydration; N18.9 Chronic kidney disease, unspecified; Z79.899 Other long term (current) drug therapy; Z79.82 Long term (current) use of aspirin; Z88.1 Allergy status to other antibiotic agents; Z87.891 Personal history of nicotine dependence
CPT/HCPCS: 36415; 36416; 51702; 70450; 71045; 71250; 72125; 72131; 72170; 74230; 76770; 80048; 80053; 80202; 81001; 81003; 81015; 82550; 82553; 82805; 83605; 84484; 85025; 87040; 87077; 87081; 87086; 87186; 93005; 93306; 94640; 96365; 96366; 96367; 97139; J0295; J1650; J1940; J1956; J3370; J3490; J7050; J7070; J7620; J7999